=== PATIENT | male | born 1940 | race Caucasian/White ===

== ENCOUNTER 2020-07-24 09:25 | Outpatient (REF) | payer MEDICARE, BC, SELFPAY ==
[2020-07-24 12:38] LABS: Prostate Specific Antigen < 0.05 ng/mL (<0.05-4.0)
== END 2020-07-24 09:26 | disposition home or self-care (01) ==
LOC: HO.HMGCLDS 09:25
PROVIDERS: PCP Internal Medicine; Visit Provider Urology
DX: Z12.5 Encounter for screening for malignant neoplasm of prostate (principal); C61 Malignant neoplasm of prostate
CPT/HCPCS: 36415; 84153

== ENCOUNTER 2021-01-09 07:08 | Outpatient (REF) | payer MEDICARE, BC, SELFPAY ==
[2021-01-09 11:52] LABS: Cholesterol 120 mg/dL; HDL Cholesterol 34 mg/dL; LDL Cholesterol Calculated 71 mg/dl; Triglycerides 78 mg/dL
[2021-01-09 12:18] LABS: Prostate Specific Antigen < 0.05 ng/mL (<0.05-4.0)
== END 2021-01-09 07:09 | disposition home or self-care (01) ==
LOC: HO.HMGCLDS 07:08
PROVIDERS: PCP Internal Medicine; Visit Provider Urology
DX: E11.9 Type 2 diabetes mellitus without complications (principal); Z12.5 Encounter for screening for malignant neoplasm of prostate; C61 Malignant neoplasm of prostate
CPT/HCPCS: 36415; 80061; 84153

== ENCOUNTER 2021-01-11 13:48 | Emergency (ER) | payer MEDICARE, BC, SELFPAY ==
[2021-01-11 14:57] VITALS: BP 197/97; PULSE 48; RESP 16; TEMP 35.7; O2SAT 99; BMI 28.8
[2021-01-11 17:36] LABS: MANUAL DIFF FLAG NO
[2021-01-11 17:38] LABS: Basophils Absolute Auto 0.1 X10*3/uL (0.0-0.2); Eosinophils Absolute Auto 0.2 X10*3/uL (0.0-0.4); Eosinophils Percent Auto 2.4 % (0-4); Hematocrit 40.3 % (42-52); Hemoglobin 14.2 g/dl (14.0-18.0); Imm Gran Abs Auto 0.02 X10*3/uL (0.00-0.03); Imm Gran Pct Auto 0.3 % (0.0-0.4); Lymphocytes Absolute Auto 1.3 X10*3/uL (1.2-4.9); Lymphocytes Percent Auto 18.8 % (20-40); Mean Corpuscular HGB Conc 35.2 g/dl (31.0-36.0); Mean Corpuscular Hemoglobin 30.9 pg (27.0-33.0); Mean Corpuscular Volume 87.6 fL (80-98); Mean Platelet Volume 11.2 fL (9.4-12.4); Monocytes Absolute Auto 0.5 X10*3/uL (0.1-1.2); Monocytes Percent Auto 7.8 % (2-11); Neutrophils Absolute Auto 4.7 X10*3/uL (2.0-8.3); Neutrophils Percent Auto 69.7 % (45-73); Platelet Count 160 X10*3/uL (160-400); Red Cell Distribution Width 12.6 % (11.0-16.0); White Blood Count 6.7 X10*3/uL (4.8-10.8)
[2021-01-11 17:39] LABS: Glucose Urine UA NEG (NEG); Leukocyte Esterase Urine NEG (NEG); Nitrite Urine NEG (NEG); Specific Gravity - Urine <= 1.005 (1.005-1.025); Urine Blood TRACE (NEG); Urine Ketones NEG (NEG); Urine Protein NEG (NEG-TRACE)
[2021-01-11 17:41] LABS: Appearance Urine CLEAR; Color Urine STRAW
--- NOTE | 2021-01-11 17:42 | ED_ITS ---
HPI - Male Genitourinary General Chief complaint: Urogenital-Male Stated complaint: blood in urine Source: patient and family Mode of arrival: ambulatory Limitations: no limitations History of Present Illness HPI Narrative: 80-year-old male with prior history of prostate cancer, hematuria, followed by Dr. Wells presents with hematuria and large bright red blood clots in his urine since yesterday. When he noted blood in his urine he started drinking more fluids and was able to pass large clots without difficulty . He does not feel like he has any urinary retention, and does not report any fevers or chills. He denies abdominal pain and bloating, and states that since his weight in the waiting room that his hematuria has resolved. MD Complaint: other (Hematuria) Onset (ago): day(s) (To) Duration: constant Severity: mild Exacerbating factors: urination Associated symptoms: Reports blood in urine Related Data Home Medications Medication Instructions Recorded Confirmed esomeprazole magnesium 40 mg 40 mg PO DAILY 04/11/20 capsule,delayed release (Nexium) bicalutamide 50 mg tablet 50 mg PO DAILY 08/17/20 blood pressure test kit-large #1 ea 08/17/20 metoprolol tartrate 50 mg tablet 50 mg PO BID 08/17/20 rosuvastatin 40 mg tablet 40 mg PO DAILY 08/17/20 Previous Rx's Medication Instructions Recorded bicalutamide 50 mg tablet 50 mg PO DAILY 90 Days #90 tab 11/06/20 Allergies Allergy/AdvReac Type Severity Reaction Status Date / Time Aspirin Allergy Unknown Sensitivity Uncoded 01/11/21 15:06 /bleeds Review of Systems Review of Systems: Constitutional: No Fever, No Chills ENT/Mouth: No Ear Pain, No Hoarseness, No sore throat Eyes: No Eye Pain, No Swelling, No Redness, No Foreign Body Cardiovascular: No Chest Pain, No SOB Respiratory: No Cough, No Dyspnea Gastrointestinal: No Nausea, No Vomiting, No Diarrhea, No abdominal Pain Genitourinary: No Dysuria, positive Hematuria Musculoskeletal: No joint pain, No Myalgias, No Joint Swelling Skin: No Skin lacerations, No rash Neuro: No Weakness, No Numbness, No Paresthesias, No Loss of Consciousness, No Dizziness, No Headache Psych: No Anxiety/Panic, No Depression Heme/Lymph: no easy bruising, no Lymphadenopathy Endocrine: No Polyuria, No Polydipsia Yes all other systems are reviewed and are negative [facility] Past Medical History Attestation statement: The following information was validated with the patient. Source: old records reviewed Surgical History H/O rectal polypectomy History of coronary artery stent placement History of prostatectomy S/P CABG x 1 Family History Family History Father CAD (coronary artery disease) Myocardial infarction Mother Diverticulitis Social History Social History Alcohol intake: current Alcohol intake frequency: a few times a week Advance Directives: No Advance Directives Information Provided: No Physical Exam Vital Signs: Vital Signs: Last Vital Signs Temp 96.2 F L 01/11/21 14:57 Pulse 48 L 01/11/21 14:57 Resp 16 01/11/21 14:57 BP 197/97 H 01/11/21 14:57 Pulse Ox 99 01/11/21 14:57 Body Mass Index 28.8 Appearance: Alert. Oriented X3. No acute distress. Eyes: Pupils equal, round and reactive to light. ENT: Pharynx normal. Moist mucous membranes. Neck: Normal inspection. Neck supple. CVS: Normal heart rate and rhythm. Pulses normal. Respiratory: No respiratory distress. Breath sounds normal. Abdomen: Soft and nontender. No suprapubic tenderness, bladder not palpable. Skin: Skin warm and dry. Normal skin color. Normal skin turgor. Extremities: No lower extremity edema. Moves all extremities against resistance. Gait well balanced well coordinated. Neuro: No motor deficit. No sensory deficit. Cranial nerves 2-12 intact. Course Course Course Narrative: 80-year-old male presents with resolved hematuria. Labs drawn while he was waiting in the emergency department waiting room. Lab values are within normal limits, no indication of anemia H&H is 14.3/40.3, urinalysis is negative for nitrites or leukocyte esterase, trace amounts of red blood cells. Blood is not visible in his urine at this time. Patient does understand that if symptoms persist or if he has any urinary retention that he should return to the emergency department immediately. He does have an appointment with urology this week. Will have patient discharged home with no further care. Patient and patient's family verbalized understanding of and agrees to plan of care. MDM - Male Genitourinary Differential Diagnosis Differential diagnosis: Likely urinary tract infection and acute retention of urine Medical Records Attestation: I reviewed the patient's medical records. Lab Data Attestation: I reviewed the patient's lab results. Result diagrams: 01/11/21 17:32 01/11/21 17:32 Labs: Lab Results 01/11/21 01/11/21 01/11/21 Range/Units 17:32 17:32 17:32 WBC 6.7 (4.8-10.8) X10*3/uL RBC 4.60 (4.60-5.80) X10*6/uL Hgb 14.2 (14.0-18.0) g/dl Hct 40.3 L (42-52) % MCV 87.6 (80-98) fL MCH 30.9 (27.0-33.0) pg MCHC 35.2 (31.0-36.0) g/dl RDW 12.6 (11.0-16.0) % Plt Count 160 (160-400) X10*3/uL MPV 11.2 (9.4-12.4) fL Immature Gran % (Auto) 0.3 (0.0-0.4) % Neut % (Auto) 69.7 (45-73) % Lymph % (Auto) 18.8 L (20-40) % Hoke % (Auto) 7.8 (2-11) % Eos % (Auto) 2.4 (0-4) % Baso % (Auto) 1.0 (0-2) % Lymph # (Auto) 1.3 (1.2-4.9) X10*3/uL [place] # (Auto) 0.5 (0.1-1.2) X10*3/uL Eos # (Auto) 0.2 (0.0-0.4) X10*3/uL Baso # (Auto) 0.1 (0.0-0.2) X10*3/uL Abs Immat Gran (auto) 0.02 (0.00-0.03) X10*3/uL Absolute Neuts (auto) 4.7 (2.0-8.3) X10*3/uL Absolute Nucleated RBC 0.000 (0.0-0.012) X10*3/uL Nucleated RBC % (auto) 0.0 (0.0-0.2) /100WBC Sodium 136 (135-145) mmol/L Potassium 4.8 (3.3-5.1) mmol/L Chloride 102 (96-108) mmol/L Carbon Dioxide 25 (22-29) mmol/L Anion Gap 14 (12-20) BUN 8 L (9-16) mg/dL Creatinine 0.83 (0.5-1.4) mg/dL Estim Creat Clear Calc 76.8 Estimated GFR > 60 Random Glucose 97 (60-115) mg/dL Calcium 9.9 (8.4-10.2) mg/dL Urine Color STRAW Urine Appearance CLEAR Urine pH 6.0 (5.0-8.0) Ur Specific [place] <= 1.005 (1.005-1.025) Urine Protein NEG (NEG-TRACE) MG/DL Urine Glucose (UA) NEG (NEG) MG/DL Urine Ketones NEG (NEG) MG/DL Urine Blood TRACE (NEG) Urine Nitrite NEG (NEG) Ur Leukocyte Esterase NEG (NEG) Urine RBC 0-2 (0) /HPF Urine WBC 0 (0-4) /HPF Ur Squamous Epith Cells TRACE /LPF Urine Bacteria NONE /LPF Discharge Plan Discharge Clinical Impression: Gross hematuria Patient Disposition: Home, Self-Care Instructions: Hematuria (ED) Additional Instructions: You were evaluated for hematuria with blood clots. Your urinalysis shows a trace amount of blood, urinalysis is negative for nitrates and leukocyte esterase. You do not have urinary tract infection at this time. Your hemoglobin hematocrit are 14.2/40.3, you do not have anemia at this time. Please continue to follow-up with Dr. Wells as scheduled on . If your hematuria or blood clots return or if you have urinary retention please come back to the emergency department for Romero catheterization. Thank you for your time and patience during your long wait time as well as choosing this emergency department for evaluation. Please [facility] with [facility] as needed. Return to the emergency department for any new, concerning, or worsening symptoms. Prescriptions: No Action esomeprazole magnesium [Nexium] 40 mg capsule,delayed release(DR/EC) 40 mg PO DAILY RF: 0 bicalutamide 50 mg tablet 50 mg PO DAILY 90 Days Qty: 90 RF: 1 Interventions: ED Discharge Assessment Last Done: 01/11/21 18:32 Discharge Date/Time: 01/11/21 18:37
[2021-01-11 17:51] LABS: RBC Urine 0-2 /HPF (0); Squamous Epithelial Cell Urine TRACE /LPF; WBC Urine 0 /HPF (0-4)
[2021-01-11 17:59] LABS: Anion Gap 14 (12-20); Blood Urea Nitrogen 8 mg/dL (9-16); Calcium 9.9 mg/dL (8.4-10.2); Carbon Dioxide 25 mmol/L (22-29); Chloride 102 mmol/L (96-108); Creatinine Clr Calc Pharmacy 76.8; Estimated Glomerular Filt Rate > 60; Glucose Random 97 mg/dL (60-115); Potassium 4.8 mmol/L (3.3-5.1); Sodium 136 mmol/L (135-145)
== END 2021-01-11 18:37 | disposition home or self-care (01) ==
PROVIDERS: Emergency Provider Emergency Medicine; PCP Internal Medicine
DX: R31.0 Gross hematuria (principal); C61 Malignant neoplasm of prostate
CPT/HCPCS: 36415; 80048; 81001; 85025; 99283

== ENCOUNTER → 2021-01-17 08:54 | Outpatient (BNVA) | payer MEDICARE, BC, SELFPAY | PROVIDERS: PCP Internal Medicine; Visit Provider Urology | DX: C61 Malignant neoplasm of prostate (principal); N30.40 Irradiation cystitis without hematuria | CPT/HCPCS: 99212 ==

== ENCOUNTER → 2021-03-06 09:25 | Outpatient (BNVA) | payer MEDICARE, BC, SELFPAY | PROVIDERS: PCP Internal Medicine; Visit Provider Urology | DX: N30.40 Irradiation cystitis without hematuria (principal) | CPT/HCPCS: 51700; 51798 ==

== ENCOUNTER 2021-04-13 07:10 | Outpatient (REF) | payer MEDICARE, BC, SELFPAY ==
[2021-04-13 12:17] LABS: Prostate Specific Antigen < 0.05 ng/mL (<0.05-4.0)
[2021-04-18 01:57] LABS: Testosterone, Total 79 ng/dL (250-1100)
== END 2021-04-13 07:11 | disposition home or self-care (01) ==
LOC: HO.HMGCLDS 07:10
PROVIDERS: PCP Internal Medicine; Visit Provider Urology
DX: Z12.5 Encounter for screening for malignant neoplasm of prostate (principal); C61 Malignant neoplasm of prostate
CPT/HCPCS: 36415; 84153; 84403

== ENCOUNTER 2021-04-17 07:21 | Outpatient (REF) | payer MEDICARE, BC, SELFPAY ==
[2021-04-17 11:30] LABS: MANUAL DIFF FLAG NO
[2021-04-17 11:36] LABS: Basophils Absolute Auto 0.1 X10*3/uL (0.0-0.2); Basophils Percent Auto 1.6 % (0-2); Eosinophils Absolute Auto 0.3 X10*3/uL (0.0-0.4); Eosinophils Percent Auto 5.2 % (0-4); Hematocrit 40.1 % (42.0-52.0); Hemoglobin 13.6 g/dl (14.0-18.0); Imm Gran Abs Auto 0.01 X10*3/uL (0.00-0.03); Imm Gran Pct Auto 0.2 % (0.0-0.4); Lymphocytes Absolute Auto 1.5 X10*3/uL (1.2-4.9); Lymphocytes Percent Auto 23.8 % (20-40); Mean Corpuscular HGB Conc 33.9 g/dl (31.0-36.0); Mean Corpuscular Hemoglobin 30.2 pg (27.0-33.0); Mean Corpuscular Volume 88.9 fL (80.0-98.0); Mean Platelet Volume 11.7 fL (9.4-12.4); Monocytes Absolute Auto 0.6 X10*3/uL (0.1-1.2); Monocytes Percent Auto 9.3 % (2-11); Neutrophils Absolute Auto 3.7 x10*3/uL (2.0-8.3); Neutrophils Percent Auto 59.9 % (45-73); Platelet Count 197 X10*3/uL (160-400); Red Blood Count 4.51 X10*6/uL (4.60-5.80); White Blood Count 6.1 X10*3/uL (4.8-10.8)
[2021-04-17 12:23] LABS: Alanine Aminotransferase 15 U/L (0-40); Albumin Level 4.1 g/dL (3.5-5.0); Alkaline Phosphatase 67 U/L (39-117); Anion Gap 12 (12-20); Aspartate Amino Transferase 20 U/L (5-37); Bilirubin Total 0.4 mg/dL (0.0-1.0); Blood Urea Nitrogen 16 mg/dL (9-16); Calcium 9.3 mg/dL (8.4-10.2); Carbon Dioxide 25 mmol/L (22-29); Chloride 102 mmol/L (96-108); Cholesterol 125 mg/dL; Estimated Glomerular Filt Rate > 60; Glucose Fasting 96 mg/dL (60-99); HDL Cholesterol 35 mg/dL; LDL Cholesterol Calculated 68 mg/dl; Potassium 4.1 mmol/L (3.3-5.1); Sodium 135 mmol/L (135-145); Total Protein 6.8 g/dL (6.5-8.0); Triglycerides 114 mg/dL
== END 2021-04-17 07:22 | disposition home or self-care (01) ==
LOC: HO.HMGCLDS 07:21
PROVIDERS: PCP Internal Medicine; Visit Provider Internal Medicine
DX: Z00.00 Encounter for general adult medical examination without abnormal findings (principal); C61 Malignant neoplasm of prostate; N30.40 Irradiation cystitis without hematuria; N39.3 Stress incontinence (female) (male)
CPT/HCPCS: 36415; 51798; 80053; 80061; 81002; 85025; 99212

== ENCOUNTER 2021-09-11 08:20 | Outpatient (REF) | payer MEDICARE, BC, SELFPAY ==
--- NOTE | 2021-09-11 10:21 | MHC.AU.AHA ---
Adult Audiological Evaluation Date of Visit: 09/11/21 Reason for Appointment: Mr. Vasquez was seen for a hearing evaluation due to complaints of possibly decreased hearing overall. Mr. Vasquez has a known bilateral sensorineural hearing loss and uses hearing aids binaurally. Mr. Vasquez reports reduced hearing bilaterally and increased difficulty understanding speech in noise. He also reports his left hearing device seems weaker recently. He denies any significant changes to his overall health and medications. He denies any pain, drainage, dizziness, and tinnitus at today's appointment. Previous Hearing Test Results: [facility] [place]-12/06/2019- Mild sloping to borderline severe to profound sensorineural hearing loss bilaterally. Word recognition in the right ear was 80% at 75 dB HL and 84% at 80 dB HL in the left ear. Ear History: History of Ear Wax Buildup: Both Ears Medical History: Medical History: High Blood Pressure Medical History: History of prostate cancer, History of coronary artery stent placement Allergies: Aspirin Medication List: blood pressure test kit, esomeprazole magnesium, metoprolol tartrate, pentoxifylline ER, rosuvastatin, vitamin E Hearing Instrument History- Right Ear: Supervisor Shaving And Splitting: SmashFly Model: AmVac M90-R Serial Number: [id number] Battery Size: Rechargeable Repair Warranty: 03/07/2023 Loss and Damage Warranty: 03/07/2023 Dispensed By: [facility] Date of Fittin12/28/2019 Hearing Instrument History- Left Ear: Supervisor Shaving And Splitting: SmashFly Model: [id number] M90-[id number] Serial Number: [id number] Battery Size: Rechargeable Warranty: 03/07/2023 Loss and Damage Warranty: 03/07/2023 Dispensed By: [facility] Date of Fittin12/28/2019 Otoscopy: Right Ear: Unremarkable Left Ear: Partially occluded with cerumen Tympanometry: Tympanometry performed due to: To assess integrity of the middle ear system Right Ear: Could Not Obtain Seal Left Ear: Could Not Obtain Seal Hearing Evaluation: Transducer(s) Used: Circumaural Headphones, Bone Conduction Method: Conventional Audiometry Stimuli Used: Pure Tones Right Ear: Description of Hearing: Normal hearing thresholds from 250-500 Hz sloping to a severe sensorineural hearing loss through 8000 Hz. Left Ear: Description of Hearing: Normal hearing threshold at 250 Hz sloping to a profound sensorineural hearing loss through 8000 Hz. Speech Recognition Threshold (SRT): Method Used: Monitored Live Voice Stimuli Used: Spondee Words Right Ear: 30 dB HL Left Ear: 35 dB HL Word Discrimination: Method: Monitored Live Voice, Recorded Lists Word Lists Used: NU-6 Right Ear: 76% at 85 dB HL with monitored live voice. 56% at 85 dB HL with recorded lists. Left Ear: 84% at 85 dB HL with recorded lists. Comparison: Hearing thresholds have remained stable since previous evaluation in 2020. Word recognition in the right ear has decreased when using recorded lists. Interpretation of Results: Stable, mild to profound sensorineural hearing loss bilaterally. Recommendations: Mr. Vasquez should return in one year for an updated hearing evaluation. Hearing aid maintenance was performed at this appointment. Hearing aids were cleaned and microphones were brushed. The staff psychologist on the left device was replaced as the wax guard had become stuck in the staff psychologist. Wax guard was replaced on the right device. Domes were replaced bilaterally. Biologic listening check revealed the devices were in good working order. Devices were connected to programming software and speech in noise was adjusted to address Mr. Vasquez's complaints of difficulties hearing in noise. Mr. Vasquez reported good sound quality. He should return in six months, or sooner, for hearing aid maintenance. Continued use of consistent amplification is recommended. Additionally, recommended patient follow up with their primary care physician for cerumen removal if the cerumen in the left ear begins to impact his hearing abilities. Diagnosis: Primary Diagnosis: H90.3 Bilateral Sensorineural Hearing Loss Services Performed: Comprehensive Audiological Evaluation (CPT 71616) Signature: Student/Clinical Fellow: Yes: Cherelle Harris B.A., [facility] [employer] Manager I have reviewed/agreed with student/fellow documentation: Yes Provider: Samuel Shelby, [facility]
== END 2021-09-11 08:21 | disposition home or self-care (01) ==
LOC: HO.SH 08:20
PROVIDERS: Visit Provider Internal Medicine
DX: Z01.118 Encounter for examination of ears and hearing with other abnormal findings (principal); H90.3 Sensorineural hearing loss, bilateral
CPT/HCPCS: 92557

== ENCOUNTER 2021-10-03 09:09 | Outpatient (REF) | payer MEDICARE, BC, SELFPAY ==
[2021-10-03 12:37] LABS: Prostate Specific Antigen < 0.05 ng/mL (<0.05-4.0)
== END 2021-10-03 09:10 | disposition home or self-care (01) ==
LOC: HO.HMGCLDS 09:09
PROVIDERS: PCP Internal Medicine; Visit Provider Urology
DX: Z12.5 Encounter for screening for malignant neoplasm of prostate (principal); C61 Malignant neoplasm of prostate
CPT/HCPCS: 36415; 84153

== ENCOUNTER → 2021-10-11 09:34 | Outpatient (BNVA) | payer MEDICARE, BC, SELFPAY | PROVIDERS: PCP Internal Medicine; Visit Provider Urology | DX: N39.3 Stress incontinence (female) (male) (principal); N30.40 Irradiation cystitis without hematuria; C61 Malignant neoplasm of prostate | CPT/HCPCS: 99212 ==

== ENCOUNTER 2021-12-15 07:14 | Outpatient (REF) | payer MEDICARE, BC, SELFPAY ==
[2021-12-15 11:01] LABS: MANUAL DIFF FLAG NO
[2021-12-15 11:04] LABS: Basophils Absolute Auto 0.1 X10*3/uL (0.0-0.2); Basophils Percent Auto 2.2 % (0-2); Eosinophils Absolute Auto 0.4 X10*3/uL (0.0-0.4); Eosinophils Percent Auto 7.1 % (0-4); Hematocrit 40.5 % (42.0-52.0); Imm Gran Abs Auto 0.02 X10*3/uL (0.00-0.03); Imm Gran Pct Auto 0.3 % (0.0-0.4); Lymphocytes Absolute Auto 1.7 X10*3/uL (1.2-4.9); Lymphocytes Percent Auto 28.7 % (20-40); Mean Corpuscular HGB Conc 34.6 g/dl (31.0-36.0); Mean Corpuscular Hemoglobin 29.9 pg (27.0-33.0); Mean Corpuscular Volume 86.4 fL (80.0-98.0); Mean Platelet Volume 11.8 fL (9.4-12.4); Monocytes Absolute Auto 0.6 X10*3/uL (0.1-1.2); Monocytes Percent Auto 9.8 % (2-11); Neutrophils Percent Auto 51.9 % (45-73); Platelet Count 176 X10*3/uL (160-400); Red Blood Count 4.69 X10*6/uL (4.60-5.80); Red Cell Distribution Width 13.4 % (11.0-16.0); White Blood Count 5.8 X10*3/uL (4.8-10.8)
[2021-12-15 11:36] LABS: Alanine Aminotransferase 17 U/L (0-40); Albumin Level 4.1 g/dL (3.5-5.0); Alkaline Phosphatase 70 U/L (39-117); Anion Gap 8 (12-20); Aspartate Amino Transferase 21 U/L (5-37); Bilirubin Total 0.4 mg/dL (0.0-1.0); Blood Urea Nitrogen 12 mg/dL (9-16); Calcium 8.9 mg/dL (8.4-10.2); Carbon Dioxide 28 mmol/L (22-29); Chloride 101 mmol/L (96-108); Cholesterol 118 mg/dL; Estimated Glomerular Filt Rate > 60; Glucose Fasting 97 mg/dL (60-99); HDL Cholesterol 34 mg/dL; LDL Cholesterol Calculated 64 mg/dl; Potassium 4.3 mmol/L (3.3-5.1); Sodium 133 mmol/L (135-145); Total Protein 6.9 g/dL (6.5-8.0); Triglycerides 100 mg/dL
== END 2021-12-15 07:15 | disposition home or self-care (01) ==
LOC: HO.HMGCLDS 07:14
PROVIDERS: Absent Provider Urology; PCP Internal Medicine; Visit Provider Internal Medicine
DX: Z00.00 Encounter for general adult medical examination without abnormal findings (principal); Z13.0 Encounter for screening for diseases of the blood and blood-forming organs and certain disorders involving the immune mechanism
CPT/HCPCS: 36415; 80053; 80061; 85025

== ENCOUNTER 2022-04-01 13:41 | Outpatient (REF) | payer MEDICARE, BC, SELFPAY ==
--- NOTE | ~2022-04-01 | XR_ITS ---
EXAMINATION: XR CHEST CLINICAL INFORMATION: Cough. COMPARISON: None TECHNIQUE: 2 views of the chest were obtained. FINDINGS: The lungs are well expanded and clear. The heart size and pulmonary vascularity is normal. There are mediastinal sutures and mediastinal caroline from previous intervention. There is a cardiac valve prosthesis. No pericardial effusion seen. There is no gross bony abnormality. XR/XR chest 2V IMPRESSION: Unremarkable chest examination.
== END 2022-04-01 13:42 | disposition home or self-care (01) ==
LOC: HO.XRAY 13:41
PROVIDERS: PCP Internal Medicine; Visit Provider Internal Medicine
DX: R05.9 Cough, unspecified (principal)
CPT/HCPCS: 71046

== ENCOUNTER 2022-04-19 09:35 | Outpatient (REF) | payer MEDICARE, BC, SELFPAY ==
[2022-04-19 11:58] LABS: Prostate Specific Antigen < 0.10 ng/mL (<0.05-4.0)
== END 2022-04-19 09:36 | disposition home or self-care (01) ==
LOC: HO.HMGCLDS 09:35
PROVIDERS: PCP Internal Medicine; Visit Provider Urology
DX: Z12.5 Encounter for screening for malignant neoplasm of prostate (principal); C61 Malignant neoplasm of prostate
CPT/HCPCS: 36415; 84153

== ENCOUNTER → 2022-04-23 08:26 | Outpatient (BNVA) | payer MEDICARE, BC, SELFPAY | PROVIDERS: PCP Internal Medicine; Visit Provider Urology | DX: C61 Malignant neoplasm of prostate (principal); N30.40 Irradiation cystitis without hematuria | CPT/HCPCS: Q3014 ==

== ENCOUNTER 2022-05-30 07:14 | Outpatient (REF) | payer MEDICARE, BC, SELFPAY ==
[2022-05-30 12:19] LABS: Alanine Aminotransferase 13 U/L (0-40); Alkaline Phosphatase 71 U/L (39-117); Anion Gap 13 (12-20); Aspartate Amino Transferase 23 U/L (5-37); Bilirubin Total 0.5 mg/dL (0.0-1.0); Blood Urea Nitrogen 11 mg/dL (9-16); Calcium 9.1 mg/dL (8.4-10.2); Carbon Dioxide 26 mmol/L (22-29); Chloride 101 mmol/L (96-108); Cholesterol 122 mg/dL; Estimated Glomerular Filt Rate > 60; Glucose Fasting 101 mg/dL (60-99); HDL Cholesterol 38 mg/dL; LDL Cholesterol Calculated 66 mg/dl; Sodium 135 mmol/L (135-145); Thyroid Stimulating Hormone 2.97 uIU/mL (0.32-4.0); Total Protein 6.9 g/dL (6.5-8.0); Triglycerides 91 mg/dL
== END 2022-05-30 07:15 | disposition home or self-care (01) ==
LOC: HO.HMGCLDS 07:14
PROVIDERS: PCP Internal Medicine; Visit Provider Internal Medicine
DX: Z00.00 Encounter for general adult medical examination without abnormal findings (principal); I10 Essential (primary) hypertension; E03.9 Hypothyroidism, unspecified; E78.5 Hyperlipidemia, unspecified
CPT/HCPCS: 36415; 80053; 80061; 84443

== ENCOUNTER 2022-08-29 07:08 | Outpatient (REF) | payer MEDICARE, BC, SELFPAY ==
[2022-08-29 12:15] LABS: Cholesterol 123 mg/dL; HDL Cholesterol 34 mg/dL; LDL Cholesterol Calculated 68 mg/dl; Triglycerides 107 mg/dL
== END 2022-08-29 07:09 | disposition home or self-care (01) ==
LOC: HO.HMGCLDS 07:08
PROVIDERS: PCP Internal Medicine; Visit Provider Internal Medicine
DX: E78.5 Hyperlipidemia, unspecified (principal)
CPT/HCPCS: 36415; 80061

== ENCOUNTER 2022-10-14 09:40 | Outpatient (REF) | payer MEDICARE, BC, SELFPAY ==
[2022-10-14 12:18] LABS: Prostate Specific Antigen < 0.10 ng/mL (<0.05-4.0)
== END 2022-10-14 09:41 | disposition home or self-care (01) ==
LOC: HO.HMGCLDS 09:40
PROVIDERS: PCP Internal Medicine; Visit Provider Urology
DX: Z12.5 Encounter for screening for malignant neoplasm of prostate (principal); C61 Malignant neoplasm of prostate
CPT/HCPCS: 36415; 84153

== ENCOUNTER → 2022-10-17 09:52 | Outpatient (BNVA) | payer MEDICARE, BC, SELFPAY | PROVIDERS: PCP Internal Medicine; Visit Provider Urology | DX: R31.0 Gross hematuria (principal); C61 Malignant neoplasm of prostate; N30.40 Irradiation cystitis without hematuria | CPT/HCPCS: 52000; 99212 ==

== ENCOUNTER 2023-04-04 14:41 | Outpatient (AMB) | payer MEDICARE, BC, SELFPAY ==
[2023-04-04 14:44] VITALS: BP 166/80; PULSE 65; O2SAT 98; BMI 29.2
--- NOTE | 2023-04-04 14:44 | MHC.PC.OV ---
Vital Signs 04/04/23 14:44 Height 5 ft 9 in Weight 198 lb BMI 29.2 BP 166/80 H Blood Pressure Location Lt brachial Position Sitting Pulse 65 Pulse Source Pulse Oximeter Pulse Oximetry (%) 98 Oxygen Delivery Method Room Air Intake Visit Reasons: Medication Follow Up Drafter Commercial: Not Required per policy Accompanied by: Self / Same As Patient Allergies Aspirin Allergy (Unknown, Uncoded 04/04/23 14:44) Sensitivity/bleeds Medication List - Last Reconciled 04/07/23 by Pete Brunner MD aspirin 81 mg PO DAILY blood pressure test kit-large As directed esomeprazole magnesium 40 mg PO DAILY metoprolol tartrate 50 mg PO BID rosuvastatin 40 mg PO DAILY Tobacco use date assessed: 09/02/22 Fall risk assessment: No Falls in past year Last assessed Fall Risk: 04/04/23 Dental Screening Dental Screen Date: 04/04/23 Did you have a dental visit in the last 12 months?: Yes Did you have a dental problem in the last 6 months where you did not have access to dental care?: No Was dental information given to patient?: Patient has dentist HPI Medication Follow Up HPI Details HTN hyperlipidemia and gerd on rx; doing well and compliant [facility] Medical History BMI 28.0-28.9,adult History of sigmoidoscopy Prostate cancer Surgical History History of cystoscopy H/O rectal polypectomy History of coronary artery stent placement S/P CABG x 1 History of prostatectomy Family History Father CAD (coronary artery disease) Myocardial infarction Mother Diverticulitis Social History Housing: House Alcohol intake: current Alcohol intake frequency: a few times a week Patient Tobacco Use Status: Former Tobacco user Tobacco use type: Cigarette e-Cigarette/Vaping Use: Never Used Second Hand Smoke Exposure: No service: No Current occupational status: retired Cognitive needs: No Hearing needs: Yes Vision needs: No Questionnaire PHQ-9 Over the last 2 weeks, how often have you been bothered by any of the following problems? 1. Little interest or pleasure in doing things: not at all 2. Feeling down, depressed, or hopeless: not at all 3. Trouble falling or staying asleep, or sleeping too much: not at all 4. Feeling tired or having little energy: not at all 5. Poor appetite or overeating: not at all 6. Feeling bad about yourself - or that you are a failure or have let yourself or your family down: not at all 7. Trouble concentrating on things, such as reading the newspaper or watching television: not at all 8. Moving or speaking so slowly that other people could have noticed. Or the opposite - being so fidgety or restless that you have been moving around a lot more than usual: not at all 9. Thoughts that you would be better off or of hurting yourself in some way: not at all Total score: 0 Depression Screening Interpretation: Negative Depression Screening Done: Yes Source: Developed by Drs. Faheem Lee, Lexus Stevenson, Marcus Haley and colleagues, with an educational mariposa from [employer]. Thrive Questionnaire Date Thrive assessed: 06/03/22 AUDIT C Alcohol Use Questionnaire (AUDIT-C) 1. How often do you have a drink containing alcohol?: Monthly or less 2. How many drinks containing alcohol do you have on a typical day when you are drinking?: 1 or 2 3. How often do you have six or more drinks on one occasion?: Never Total Score: 1 Score Reviewed/Action Taken: No RIAZ-7 AMB Questionnaire RIAZ-7 Date RIAZ - 7 assessed: 06/03/22 Source: Developed by Drs. Faheem Lee, Lexus Stevenson, Marcus Haley and colleagues, with an educational mariposa from [employer]. Review of Systems Const Denies chills, Denies headache(s) and Denies weight loss ENT Denies headache(s) Card Denies chest pain, Denies syncope, Denies irregular heart rhythm and Denies dyspnea Resp Denies chest congestion, Denies cough and Denies dyspnea GI Denies abdominal pain, Denies change in stool character, Denies nausea and Denies vomiting Musc Denies deformity and Denies joint swelling Neuro Denies syncope and Denies headache(s) Physical exam (Primary Care) Vital Signs: Last Vital Signs Pulse 65 04/04/23 14:44 BP 166/80 H 04/04/23 14:44 Pulse Ox 98 04/04/23 14:44 Oxygen Delivery Method Room Air 04/04/23 14:44 BMI result Body Mass Index 29.2 Tobacco/Smoking Status: Tobacco use Status Tobacco use date assessed 09/02/22 04/04/23 14:49 Patient Tobacco Use Status Former Tobacco user 04/04/23 14:49 Tobacco use type Cigarette 04/04/23 14:49 e-Cigarette/Vaping Use Never Used 04/04/23 14:49 PHQ-9: PHQ-9 Score PHQ-9: Total score 0 04/04/23 14:49 Depression Screening Interpretation: Negative Thrive Assessment: Date of Thrive Assessment Date Thrive assessed 06/03/22 04/04/23 14:49 Const General: cooperative, comfortable, no acute distress and alert Neck Neck: Yes no lymphadenopathy Thyroid: Thyroid normal Resp Effort & Inspection: normal respiratory effort Auscultation: clear to auscultation bilaterally Percussion: percussion normal Cardio Jugular venous distension: no JVD Palpation: normal PMI Rate: regular rate Rhythm: regular rhythm Heart sounds: S1 normal heart sound present and S2 normal heart sound present GI Inspection: Yes normal to inspection Palpation (GI): No hepatosplenomegaly present Skin General skin exam: no rashes or lesions noted Extrem General: Yes no clubbing, cyanosis or edema Assessment and Plan Assessment & Plan (1) Hypertension: Code(s): I10 - Essential (primary) hypertension Plan: stable; same rx (2) Hyperlipidemia: Code(s): E78.5 - Hyperlipidemia, unspecified Plan: stable; same rx (3) Chronic GERD: Code(s): K21.9 - Gastro-esophageal reflux disease without esophagitis Plan: stable; same rx Orders: Orders Lipid Panel Today E78.5 - Hyperlipidemia, unspecified Comprehensive [place]. Panel Fast Today N28.9 - Disorder of kidney and ureter, unspecified Complete Blood Count Auto Diff Today D64.9 - Anemia, unspecified Coding Level of Care Code Est Pt Level 4 (39717) Diagnoses Hypertension I10 Hyperlipidemia E78.5 Chronic GERD K21.9
== END 2023-04-04 15:03 | disposition home or self-care (01) ==
PROVIDERS: PCP Internal Medicine; Visit Provider Internal Medicine
DX: I10 Essential (primary) hypertension (principal); E78.5 Hyperlipidemia, unspecified; K21.9 Gastro-esophageal reflux disease without esophagitis
CPT/HCPCS: 99214

== ENCOUNTER 2023-04-18 07:09 | Outpatient (REF) | payer MEDICARE, BC, SELFPAY ==
[2023-04-18 11:06] LABS: Prostate Specific Antigen < 0.10 ng/mL (<0.05-4.0)
== END 2023-04-18 07:10 | disposition home or self-care (01) ==
LOC: HO.HMGCLDS 07:09
PROVIDERS: PCP Internal Medicine; Visit Provider Urology
DX: Z12.5 Encounter for screening for malignant neoplasm of prostate (principal); C61 Malignant neoplasm of prostate
CPT/HCPCS: 36415; 84153

== ENCOUNTER 2023-04-23 11:39 | Outpatient (AMB) | payer MEDICARE, BC, SELFPAY ==
--- NOTE | 2023-04-23 11:49 | A.OFFVIS_ITS ---
Intake Intake Visit Reasons: 6m/PSA(set) Intake Note: Patient is present for PSA Results Results: 04/18/23 PSA: <0.10 Urology Med: None Antibiotic Allergy: None Blood Thinner: None Allergies Aspirin Allergy (Unknown, Uncoded 04/04/23 14:44) Sensitivity/bleeds Medication List - Last Reconciled 04/23/23 by Pato Wells MD aspirin 81 mg PO DAILY blood pressure test kit-large As directed esomeprazole magnesium 40 mg PO DAILY metoprolol tartrate 50 mg PO BID rosuvastatin 40 mg PO DAILY HPI HPI Comments History of Present Illness Details Jelani is a very pleasant male. He is a patient of Dr. Hill. 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 - urinary incontinence Urinary incontinence Secondary to cystoscopy performed [facility] for fulguration of radiation cystitis Leakage nonresponsive to Kegel exercises Tolerates penile clamp Remains on aspirin secondary to cardiac valve, stent, quad bypass 6 month follow-up PSA Prostate cancer - radical prostatectomy [facility] Cate 8, biochemical failure with radiation therapy Diagnosed many years ago Treatment at [facility] with radical prostatectomy Biochemical failure with subsequent radiation therapy and hormones PSA 01/13 <0.1, 10/14 < 0.1 T 80, 04/16 <0.1, 10/15 <0.1, 04/17 <0.1 Had been on continuous bicalutamide which was stopped 2020 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 Has experienced hemorrhagic cystitis Treated with hyperbaric oxygen in 2018 - has claustrophobia Recurrent episode 2020 - required emergency fulguration of bladder at [facility] May benefit from combination vitamin-E and pentoxifylline [facility] Medical History BMI 28.0-28.9,adult History of sigmoidoscopy Prostate cancer Surgical History History of cystoscopy H/O rectal polypectomy History of coronary artery stent placement S/P CABG x 1 History of prostatectomy Family History Father CAD (coronary artery disease) Myocardial infarction Mother Diverticulitis Social History Housing: House Alcohol intake: current Alcohol intake frequency: a few times a week Patient Tobacco Use Status: Former Tobacco user Tobacco use type: Cigarette e-Cigarette/Vaping Use: Never Used Second Hand Smoke Exposure: No service: No Current occupational status: retired Cognitive needs: No Hearing needs: Yes Vision needs: No Review of Systems Const Denies chills and Denies fever(s) Card Reports no additional complaints and Denies syncope Resp Denies cough GI Denies abdominal pain and Denies heartburn Reports as per HPI and Denies change in libido Neuro Denies syncope Psych Denies change in libido Endo Denies change in libido Physical Exam Const General: cooperative, healthy appearing, comfortable and no acute distress Orientation/consciousness: patient oriented x3 HEENT Face and sinus: Yes normal facial exam Mouth: moist mucous membranes Neck Neck: Yes normal visual inspection, Yes full ROM and Yes trachea midline Chest Chest palpation & inspection: normal inspection of the chest Resp Effort & Inspection: normal respiratory effort, able to speak in complete sentences and no respiratory distress GI Inspection: Yes normal to inspection Back/Spine/Pelvis Cervical Spine: normal cervical lordosis Thoracic/Lumbar Spine: thoracic and lumbar spine normal to inspection Skin General skin exam: no rashes or lesions noted Neuro General: patient oriented x3, gait normal, tone normal and moves all extremities Extrem General: Yes normal to inspection and Yes capillary refill normal Assessment & Plan Assessment & Plan (1) Prostate cancer: Code(s): C61 - Malignant neoplasm of prostate (2) Radiation cystitis: Code(s): N30.40 - Irradiation cystitis without hematuria (3) Urinary incontinence: Code(s): R32 - Unspecified urinary incontinence Qualifiers: Urinary Incontinence type: stress incontinence Qualified Code(s): N39.3 - Stress incontinence (female) (male) Plan Six month follow-up PSA Orders: Orders Prostate Specific Antigen 6 Months C61 - Malignant neoplasm of prostate Patient Instructions: Imaging studies, laboratory and physical exam results were discussed and reviewed in detail. No major barriers to patient understanding were identified. An opportunity to ask questions regarding the treatment plan was provided. All questions were answered. The patient expressed understanding and agreement with the above treatment plan. The patient is aware they should contact our office by phone for worsening of their current condition or the appearance of new urologic symptoms. Compliance is encouraged with any medications and followup testing that is ordered. It is a privilege to participate in the urologic care of your patient. If you have any questions or concerns regarding treatment for the above conditions, or other urologic issues, please do not hesitate to contact me. The office telephone contact is [phone]. This note is constructed using voice recognition software. While every effort has been made to ensure accuracy child & adolescent psychiatrist errors may have been included. Yours sincerely, Dr Pato Wells MD, [facility] - Urology Providers of Expert, Compassionate Care for the Genitourinary System Coding Level of Care Code Est Pt Level 3 (60563) Diagnoses Prostate cancer C61 Radiation cystitis N30.40 Stress incontinence of urine N39.3 Urinary Incontinence type: stress incontinence
== END 2023-04-23 12:26 | disposition home or self-care (01) ==
PROVIDERS: Visit Provider Urology
DX: C61 Malignant neoplasm of prostate (principal); N30.40 Irradiation cystitis without hematuria; N39.3 Stress incontinence (female) (male)
CPT/HCPCS: 99213

== ENCOUNTER → 2023-04-23 11:39 | Outpatient (BNVA) | payer MEDICARE, BC, SELFPAY | PROVIDERS: Visit Provider Urology | DX: N30.40 Irradiation cystitis without hematuria (principal); N39.3 Stress incontinence (female) (male); C61 Malignant neoplasm of prostate | CPT/HCPCS: 99212 ==

== ENCOUNTER 2023-07-10 07:49 | Outpatient (REF) | payer MEDICARE, BC, SELFPAY ==
[2023-07-10 11:37] LABS: MANUAL DIFF FLAG NO
[2023-07-10 11:52] LABS: Basophils Absolute Auto 0.1 X10*3/uL (0.0-0.2); Basophils Percent Auto 1.7 % (0-2); Eosinophils Absolute Auto 0.3 X10*3/uL (0.0-0.4); Eosinophils Percent Auto 4.6 % (0-4); Hematocrit 42.3 % (42.0-52.0); Hemoglobin 14.6 g/dl (14.0-18.0); Imm Gran Abs Auto 0.01 X10*3/uL (0.00-0.03); Imm Gran Pct Auto 0.1 % (0.0-0.4); Lymphocytes Absolute Auto 1.7 X10*3/uL (1.2-4.9); Lymphocytes Percent Auto 23.1 % (20-40); Mean Corpuscular HGB Conc 34.5 g/dl (31.0-36.0); Mean Corpuscular Hemoglobin 30.2 pg (27.0-33.0); Mean Corpuscular Volume 87.4 fL (80.0-98.0); Mean Platelet Volume 11.5 fL (9.4-12.4); Monocytes Absolute Auto 0.7 X10*3/uL (0.1-1.2); Monocytes Percent Auto 8.9 % (2-11); Neutrophils Absolute Auto 4.6 x10*3/uL (2.0-8.3); Neutrophils Percent Auto 61.6 % (45-73); Platelet Count 172 X10*3/uL (160-400); Red Blood Count 4.84 X10*6/uL (4.60-5.80); White Blood Count 7.4 X10*3/uL (4.8-10.8)
[2023-07-10 12:18] LABS: Alanine Aminotransferase 15 U/L (0-40); Albumin Level 3.9 g/dL (3.5-5.0); Alkaline Phosphatase 74 U/L (39-117); Anion Gap 11 (12-20); Aspartate Amino Transferase 20 U/L (5-37); Bilirubin Total 0.5 mg/dL (0.0-1.0); Blood Urea Nitrogen 11 mg/dL (9-16); Calcium 9.2 mg/dL (8.4-10.2); Carbon Dioxide 27 mmol/L (22-29); Chloride 102 mmol/L (96-108); Cholesterol 123 mg/dL (<200); Estimated Glomerular Filt Rate > 60; Glucose Fasting 93 mg/dL (60-99); HDL Cholesterol 37 mg/dL (>40); LDL Cholesterol Calculated 70 mg/dL (<100); Potassium 5.1 mmol/L (3.3-5.1); Sodium 135 mmol/L (135-145); Total Protein 7.2 g/dL (6.5-8.0); Triglycerides 82 mg/dL (<150)
== END 2023-07-10 07:50 | disposition home or self-care (01) ==
LOC: HO.HMGCLDS 07:49
PROVIDERS: PCP Internal Medicine; Visit Provider Internal Medicine
DX: E78.5 Hyperlipidemia, unspecified (principal); N28.9 Disorder of kidney and ureter, unspecified; D64.9 Anemia, unspecified
CPT/HCPCS: 36415; 80053; 80061; 85025

== ENCOUNTER 2023-07-15 10:41 | Outpatient (AMB) | payer MEDICARE, BC, SELFPAY ==
[2023-07-15 10:50] VITALS: BP 132/84; PULSE 50; O2SAT 98; BMI 29.2
--- NOTE | 2023-07-15 10:50 | MHC.PC.OV ---
Vital Signs 07/15/23 10:50 Height 5 ft 9 in Weight 198 lb BMI 29.2 BP 132/84 Blood Pressure Location Lt brachial Position Sitting Pulse 50 Pulse Source Pulse Oximeter Pulse Oximetry (%) 98 Oxygen Delivery Method Room Air Intake Visit Reasons: 3 month f/u Allergies Aspirin Allergy (Unknown, Uncoded 07/15/23 10:50) Sensitivity/bleeds Medication List - Last Reconciled 07/15/23 by Pete Brunner MD aspirin 81 mg PO DAILY blood pressure test kit-large As directed esomeprazole magnesium 40 mg PO DAILY metoprolol tartrate 50 mg PO BID rosuvastatin 40 mg PO DAILY Tobacco use date assessed: 07/15/23 Fall risk assessment: No Falls in past year Last assessed Fall Risk: 07/15/23 Dental Screening Dental Screen Date: 07/15/23 Did you have a dental visit in the last 12 months?: Yes Did you have a dental problem in the last 6 months where you did not have access to dental care?: No Was dental information given to patient?: Patient has dentist HPI 3 month f/u HPI Details HTN hyperlip and urinary incont s/p prostate cancer; doing well and compliant [facility] Medical History BMI 28.0-28.9,adult History of sigmoidoscopy Prostate cancer Surgical History History of cystoscopy H/O rectal polypectomy History of coronary artery stent placement S/P CABG x 1 History of prostatectomy Family History Father CAD (coronary artery disease) Myocardial infarction Mother Diverticulitis Social History Housing: House Alcohol intake: current Alcohol intake frequency: a few times a week Patient Tobacco Use Status: Former Tobacco user Tobacco use type: Cigarette e-Cigarette/Vaping Use: Never Used Second Hand Smoke Exposure: No service: No Current occupational status: retired Cognitive needs: No Hearing needs: Yes Vision needs: No Questionnaire PHQ-9 Over the last 2 weeks, how often have you been bothered by any of the following problems? 1. Little interest or pleasure in doing things: not at all 2. Feeling down, depressed, or hopeless: not at all 3. Trouble falling or staying asleep, or sleeping too much: not at all 4. Feeling tired or having little energy: not at all 5. Poor appetite or overeating: not at all 6. Feeling bad about yourself - or that you are a failure or have let yourself or your family down: not at all 7. Trouble concentrating on things, such as reading the newspaper or watching television: not at all 8. Moving or speaking so slowly that other people could have noticed. Or the opposite - being so fidgety or restless that you have been moving around a lot more than usual: not at all 9. Thoughts that you would be better off or of hurting yourself in some way: not at all Total score: 0 Depression Screening Interpretation: Negative Depression Screening Done: Yes 86495 - PHQ-9 Billing: Yes Source: Developed by Drs. Faheem Lee, Lexus Stevenson, Marcus Haley and colleagues, with an educational mariposa from [employer]. Thrive Questionnaire Date Thrive assessed: 07/15/23 I am a: Patient What is your living situation today?: I have a steady place to live Within the past 12 months, did the food you bought not last and you didn't have the money to get more?: Never true Within the past 12 months, did you worry whether your food would run out before you got money to buy more?: Never true Do you have trouble paying for medicines?: No Do you have trouble getting transportation to medical appointments?: No Do you have trouble paying your heating and electricity bill?: No Do you have trouble taking care of your child, family member or friend?: No Do you have trouble with day-to-day activities such as bathing, preparing meals, shopping, managing finances, etc.?: No Are you currently unemployed and looking for a job?: No Are you interested in more education?: No Please select the resources that you would like help with: None THRIVE Score: 0 AUDIT C Alcohol Use Questionnaire (AUDIT-C) 1. How often do you have a drink containing alcohol?: Monthly or less 2. How many drinks containing alcohol do you have on a typical day when you are drinking?: 1 or 2 3. How often do you have six or more drinks on one occasion?: Never Total Score: 1 Score Reviewed/Action Taken: No RIAZ-7 AMB Questionnaire RIAZ-7 Date RIAZ - 7 assessed: 07/15/23 Feeling nervous, anxious, or on edge: 0 = Not at all Not being able to stop or control worryin = Not at all Worrying too much about different things: 0 = Not at all Trouble relaxin = Not at all Being so restless that it is hard to sit still: 0 = Not at all Becoming easily annoyed or irritable: 0 = Not at all Feeling afraid as if something awful might happen: 0 = Not at all Total RIAZ-7 score (0-4 normal; 5-9 mild; 10-14 moderate; 15-21 severe): 0 Source: Developed by Drs. Faheem Lee, Lexus Stevenson, Marcus Haley and colleagues, with an educational mariposa from [employer]. RIAZ-7 Assessment Billing RIAZ-7 Assessment Tool: RIAZ-7 Assessment 48172 Review of Systems Const Denies chills, Denies headache(s) and Denies weight loss ENT Denies headache(s) Card Denies chest pain, Denies syncope, Denies irregular heart rhythm and Denies dyspnea Resp Denies chest congestion, Denies cough and Denies dyspnea GI Denies abdominal pain, Denies change in stool character, Denies nausea and Denies vomiting Musc Denies deformity and Denies joint swelling Neuro Denies syncope and Denies headache(s) Physical exam (Primary Care) Vital Signs: Last Vital Signs Pulse 50 07/15/23 10:50 BP 132/84 07/15/23 10:50 Pulse Ox 98 07/15/23 10:50 Oxygen Delivery Method Room Air 07/15/23 10:50 BMI result Body Mass Index 29.2 Tobacco/Smoking Status: Tobacco use Status Tobacco use date assessed 07/15/23 07/15/23 10:52 Patient Tobacco Use Status Former Tobacco user 07/15/23 10:52 Tobacco use type Cigarette 07/15/23 10:52 e-Cigarette/Vaping Use Never Used 07/15/23 10:52 PHQ-9: PHQ-9 Score PHQ-9: Total score 0 07/15/23 10:52 Depression Screening Interpretation: Negative Thrive Assessment: Date of Thrive Assessment Date Thrive assessed 07/15/23 07/15/23 10:52 Const General: cooperative, comfortable, no acute distress and alert Neck Neck: Yes no lymphadenopathy Thyroid: Thyroid normal Resp Effort & Inspection: normal respiratory effort Auscultation: clear to auscultation bilaterally Percussion: percussion normal Cardio Jugular venous distension: no JVD Palpation: normal PMI Rate: regular rate Rhythm: regular rhythm Heart sounds: S1 normal heart sound present and S2 normal heart sound present GI Inspection: Yes normal to inspection Palpation (GI): No hepatosplenomegaly present Skin General skin exam: no rashes or lesions noted Extrem General: Yes no clubbing, cyanosis or edema Assessment and Plan Assessment & Plan (1) Urinary incontinence: Code(s): R32 - Unspecified urinary incontinence Qualifiers: Urinary Incontinence type: stress incontinence Qualified Code(s): N39.3 - Stress incontinence (female) (male) Plan: as per urol (2) Hyperlipidemia: Code(s): E78.5 - Hyperlipidemia, unspecified Plan: stable; same rx (3) Hypertension: Code(s): I10 - Essential (primary) hypertension Plan: stable; same rx Orders: Orders Lipid Panel Today E78.5 - Hyperlipidemia, unspecified Coding Level of Care Code Est Pt Level 4 (72588) Diagnoses Stress incontinence of urine N39.3 Urinary Incontinence type: stress incontinence Hyperlipidemia E78.5 Hypertension I10 Additional Codes RIAZ-7 Assessment Billing - RIAZ-7 Assessment Tool: RIAZ-7 Assessment 02932 ([id number])
== END 2023-07-15 11:02 | disposition home or self-care (01) ==
PROVIDERS: PCP Internal Medicine; Visit Provider Internal Medicine
DX: N39.3 Stress incontinence (female) (male) (principal); E78.5 Hyperlipidemia, unspecified; I10 Essential (primary) hypertension
CPT/HCPCS: 99214

== ENCOUNTER 2023-10-08 07:17 | Outpatient (REF) | payer MEDICARE, BC, SELFPAY ==
[2023-10-08 10:50] LABS: Cholesterol 114 mg/dL (<200); HDL Cholesterol 36 mg/dL (>40); LDL Cholesterol Calculated 58 mg/dL (<100); Triglycerides 101 mg/dL (<150)
[2023-10-08 11:07] LABS: Prostate Specific Antigen < 0.10 ng/mL (<0.05-4.0)
== END 2023-10-08 07:18 | disposition home or self-care (01) ==
LOC: HO.HMGCLDS 07:17
PROVIDERS: PCP Internal Medicine; Referring Provider Urology; Visit Provider Internal Medicine
DX: C61 Malignant neoplasm of prostate (principal); E78.5 Hyperlipidemia, unspecified; Z12.5 Encounter for screening for malignant neoplasm of prostate
CPT/HCPCS: 36415; 80061; 84153

== ENCOUNTER 2023-10-29 09:58 | Outpatient (AMB) | payer MEDICARE, BC, SELFPAY ==
--- NOTE | 2023-10-29 09:58 | A.OFFVIS_ITS ---
Intake Visit Reasons: 6M PSA(set) Intake Note: Patient is present for PSA Results VIA PHONE: Results: 10/08/23 PSA: <0.10 ng/mL Urology Med: None Antibiotic Allergy: None Blood Thinner: None Lens Mold Setter Required: No Accompanied by: Self / Same As Patient Allergies Aspirin Allergy (Unknown, Uncoded 10/29/23 09:59) Sensitivity/bleeds HPI Comments Details: Jelani is a very pleasant male. He is a patient of Dr. Hill. 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 - urinary incontinence Telemedicine Evaluation 15 min Consultation [employer] Randal Video PSA 10/16 <0.1 Penile clamp tolerated Urinary incontinence Secondary to cystoscopy performed [facility] for fulguration of radiation cystitis Leakage nonresponsive to Kegel exercises Tolerates penile clamp Remains on aspirin secondary to cardiac valve, stent, quad bypass 6 month follow-up PSA Prostate cancer - radical prostatectomy [facility] [place] 8, biochemical failure with radiation therapy Diagnosed many years ago Treatment at [facility] with radical prostatectomy Biochemical failure with subsequent radiation therapy and hormones PSA 01/13 <0.1, 10/14 < 0.1 T 80, 04/16 <0.1, 10/15 <0.1, 04/17 <0.1 Had been on continuous bicalutamide which was stopped 2020 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 Has experienced hemorrhagic cystitis Treated with hyperbaric oxygen in 2018 - has claustrophobia Recurrent episode 2020 - required emergency fulguration of bladder at [facility] May benefit from combination vitamin-E and pentoxifylline [facility] Medical History BMI 28.0-28.9,adult History of sigmoidoscopy Prostate cancer Surgical History History of cystoscopy H/O rectal polypectomy History of coronary artery stent placement S/P CABG x 1 History of prostatectomy Family History Father CAD (coronary artery disease) Myocardial infarction Mother Diverticulitis Social History Housing: House Alcohol intake: current Alcohol intake frequency: a few times a week Patient Tobacco Use Status: Former Tobacco user Tobacco use type: Cigarette e-Cigarette/Vaping Use: Never Used Second Hand Smoke Exposure: No service: No Current occupational status: retired Cognitive needs: No Hearing needs: Yes Vision needs: No Review of Systems Const All systems reviewed & are unremarkable except as noted in HPI and below Reports no additional complaints Resp Reports no additional complaints GI Reports no additional complaints Reports as per HPI Musc Reports no additional complaints Physical Exam Telemedicine evaluation Appropriate responses Regular breathing rate and rhythm HEENT Head: Yes normal to inspection Ears: hearing grossly normal bilaterally Eyes General: appearance normal, both eyes and all related structures Neck Neck: Yes normal visual inspection Chest Chest palpation & inspection: normal inspection of the chest Resp Effort & Inspection: normal respiratory effort and able to speak in complete sentences Telehealth Telehealth Telehealth Platform: Koko Location of provider rendering services: practice address Location of patient: address on file Patient Identification confirmed using: Name, : Yes Telehealth method: video Patient verbally consented to treatment: Yes Patient verbally consented to billing insurance company: Yes Patient informed of any privacy concerns related to visit: Yes Minutes spent on Phone/Video with Pt.: 15 Assessment & Plan Assessment & Plan (1) Urinary incontinence: Code(s): R32 - Unspecified urinary incontinence Category: Medical Qualifiers: Urinary Incontinence type: stress incontinence Qualified Code(s): N39.3 - Stress incontinence (female) (male) (2) Prostate cancer: Code(s): C61 - Malignant neoplasm of prostate Category: Medical Plan Six-month follow-up office PSA Orders: Orders Prostate Specific Antigen 6 Months C61 - Malignant neoplasm of prostate Patient Instructions: Imaging studies, laboratory and physical exam results were discussed and reviewed in detail. No major barriers to patient understanding were identified. An opportunity to ask questions regarding the treatment plan was provided. All questions were answered. The patient expressed understanding and agreement with the above treatment plan. The patient is aware they should contact our office by phone for worsening of their current condition or the appearance of new urologic symptoms. Compliance is encouraged with any medications and followup testing that is ordered. It is a privilege to participate in the urologic care of your patient. If you have any questions or concerns regarding treatment for the above conditions, or other urologic issues, please do not hesitate to contact me. The office telephone contact is [phone]. This note is constructed using voice recognition software. While every effort has been made to ensure accuracy blurb writer errors may have been included. Yours sincerely, Dr Pato Wells MD, [facility] - Urology Providers of Expert, Compassionate Care for the Genitourinary System Coding Level of Care Code Tele Est Pt Level 3 (58987) Diagnoses Stress incontinence of urine N39.3 Urinary Incontinence type: stress incontinence Prostate cancer C61
== END 2023-10-29 11:05 | disposition home or self-care (01) ==
LOC: HO.HUSH 09:58
PROVIDERS: PCP Internal Medicine; Visit Provider Urology
DX: N39.3 Stress incontinence (female) (male) (principal); C61 Malignant neoplasm of prostate
CPT/HCPCS: 99213

== ENCOUNTER → 2023-10-29 09:58 | Outpatient (BNVA) | payer MEDICARE, BC, SELFPAY | PROVIDERS: PCP Internal Medicine; Visit Provider Urology ==

== ENCOUNTER 2023-11-05 09:22 | Outpatient (AMB) | payer MEDICARE, BC, SELFPAY ==
--- NOTE | 2023-11-05 09:23 | A.OFFPC_ITS ---
Vital Signs 11/05/23 09:24 Height 5 ft 9 in Weight 195 lb BMI 28.8 BP 132/68 Blood Pressure Location Lt brachial Position Sitting Pulse 56 Pulse Source Pulse Oximeter Pulse Oximetry (%) 96 Oxygen Delivery Method Room Air Intake Visit Reasons: 3mth f/u Pipe Fitter Welding Required: No Allergies Aspirin Allergy (Unknown, Uncoded 11/05/23 09:24) Sensitivity/bleeds Medication List - Last Reconciled 11/05/23 by Pete Brunner MD aspirin 81 mg PO DAILY blood pressure test kit-large As directed esomeprazole magnesium 40 mg PO DAILY metoprolol tartrate 50 mg PO BID rosuvastatin 40 mg PO DAILY Tobacco use date assessed: 11/05/23 Fall risk assessment: No Falls in past year Last assessed Fall Risk: 11/05/23 Dental Screening Dental Screen Date: 07/15/23 HPI 3mth f/u HPI Details productive cough for 10 days PFSH Medical History BMI 28.0-28.9,adult History of sigmoidoscopy Prostate cancer Surgical History History of cystoscopy H/O rectal polypectomy History of coronary artery stent placement S/P CABG x 1 History of prostatectomy Family History Father CAD (coronary artery disease) Myocardial infarction Mother Diverticulitis Social History Housing: House Alcohol intake: current Alcohol intake frequency: a few times a week Patient Tobacco Use Status: Former Tobacco user Tobacco use type: Cigarette e-Cigarette/Vaping Use: Never Used Second Hand Smoke Exposure: No service: No Current occupational status: retired Cognitive needs: No Hearing needs: Yes Vision needs: No Questionnaire Thrive Questionnaire Date Thrive assessed: 07/15/23 AUDIT C Alcohol Use Questionnaire (AUDIT-C) 1. How often do you have a drink containing alcohol?: Monthly or less 2. How many drinks containing alcohol do you have on a typical day when you are drinking?: 1 or 2 3. How often do you have six or more drinks on one occasion?: Never Total Score: 1 Score Reviewed/Action Taken: No RIAZ-7 AMB Questionnaire RIAZ-7 Date RIAZ - 7 assessed: 07/15/23 Source: Developed by Drs. Faheem Lee, Lexus Stevenson, Marcus Haley and colleagues, with an educational mariposa from [employer]. Review of Systems Const Denies chills, Denies headache(s) and Denies weight loss ENT Denies headache(s) Card Denies chest pain, Denies syncope, Denies irregular heart rhythm and Denies dyspnea Resp Denies dyspnea GI Denies abdominal pain, Denies change in stool character, Denies nausea and Denies vomiting Musc Denies deformity and Denies joint swelling Neuro Denies syncope and Denies headache(s) Physical exam (Primary Care) Vital Signs: Last Vital Signs Pulse 56 11/05/23 09:24 BP 132/68 11/05/23 09:24 Pulse Ox 96 11/05/23 09:24 Oxygen Delivery Method Room Air 11/05/23 09:24 BMI result Body Mass Index 28.8 Tobacco/Smoking Status: Tobacco use Status Tobacco use date assessed 11/05/23 11/05/23 09:28 Patient Tobacco Use Status Former Tobacco user 11/05/23 09:28 Tobacco use type Cigarette 11/05/23 09:28 e-Cigarette/Vaping Use Never Used 11/05/23 09:28 Thrive Assessment: Date of Thrive Assessment Date Thrive assessed 07/15/23 11/05/23 09:28 Const General: cooperative, comfortable, no acute distress and alert Neck Neck: Yes no lymphadenopathy Thyroid: Thyroid normal Resp Effort & Inspection: normal respiratory effort Auscultation: clear to auscultation bilaterally Percussion: percussion normal Cardio Jugular venous distension: no JVD Palpation: normal PMI Rate: regular rate Rhythm: regular rhythm Heart sounds: S1 normal heart sound present and S2 normal heart sound present GI Inspection: Yes normal to inspection Palpation (GI): No hepatosplenomegaly present Skin General skin exam: no rashes or lesions noted Extrem General: Yes no clubbing, cyanosis or edema Assessment and Plan Assessment & Plan (1) Bronchitis: Code(s): J40 - Bronchitis, not specified as acute or chronic Plan: rx sent Medications: New azithromycin take 500 mg today (day 1), then 250 mg for 4 days (days 2-5) PO 6 tabs 0RF [id number] 6.25-5-10 mg/5 mL 5 mL PO Q4-6H PRN 473 mL 0RF flu symptoms Coding Level of Care Code Est Pt Level 3 (19042) Diagnoses Bronchitis J40
[2023-11-05 09:24] VITALS: BP 132/68; PULSE 56; O2SAT 96; BMI 28.8
== END 2023-11-05 09:43 | disposition home or self-care (01) ==
PROVIDERS: PCP Internal Medicine; Visit Provider Internal Medicine
DX: J40 Bronchitis, not specified as acute or chronic (principal)
CPT/HCPCS: 99213

== ENCOUNTER 2023-12-25 09:11 | Outpatient (REF) | payer SELFPAY | END 2023-12-25 09:12 | disposition home or self-care (01) | LOC: HO.HAP 09:11 | PROVIDERS: Visit Provider Internal Medicine | DX: Z46.1 Encounter for fitting and adjustment of hearing aid (principal) | CPT/HCPCS: 92593 ==

== ENCOUNTER 2024-02-17 09:18 | Outpatient (AMB) | payer MEDICARE, BC, SELFPAY ==
[2024-02-17 09:19] VITALS: BP 138/72; PULSE 46; O2SAT 99; BMI 28.1
--- NOTE | 2024-02-17 09:19 | A.OFFPC_ITS ---
Vital Signs 02/17/24 09:19 Height 5 ft 9 in Weight 190 lb BMI 28.1 BP 138/72 Blood Pressure Location Lt brachial Position Sitting Pulse 46 L Pulse Source Pulse Oximeter Pulse Oximetry (%) 99 Oxygen Delivery Method Room Air Intake Visit Reasons: 3 Month F/U - see comments Medical Billing Coordinator Required: No Accompanied by: Self / Same As Patient Allergies Aspirin Allergy (Unknown, Uncoded 02/17/24 09:19) Sensitivity/bleeds Medication List - Last Reconciled 02/17/24 by Pete Brunner MD aspirin 81 mg PO DAILY blood pressure test kit-large As directed esomeprazole magnesium 40 mg PO DAILY metoprolol tartrate 50 mg PO BID rosuvastatin 40 mg PO DAILY Tobacco use date assessed: 11/05/23 Fall risk assessment: No Falls in past year Last assessed Fall Risk: 02/17/24 Dental Screening Dental Screen Date: 07/15/23 HPI 3 Month F/U - see comments HPI Details hyperlipidemia on rx; doing well; compliant [facility] Medical History BMI 28.0-28.9,adult History of sigmoidoscopy Prostate cancer Surgical History History of cystoscopy H/O rectal polypectomy History of coronary artery stent placement S/P CABG x 1 History of prostatectomy Family History Father CAD (coronary artery disease) Myocardial infarction Mother Diverticulitis Social History Housing: House Alcohol intake: current Alcohol intake frequency: a few times a week Patient Tobacco Use Status: Former Tobacco user Tobacco use type: Cigarette e-Cigarette/Vaping Use: Never Used Second Hand Smoke Exposure: No service: No Current occupational status: retired Cognitive needs: No Hearing needs: Yes Vision needs: No Questionnaire PHQ-9 Over the last 2 weeks, how often have you been bothered by any of the following problems? 1. Little interest or pleasure in doing things: not at all 2. Feeling down, depressed, or hopeless: not at all 3. Trouble falling or staying asleep, or sleeping too much: not at all 4. Feeling tired or having little energy: not at all 5. Poor appetite or overeating: not at all 6. Feeling bad about yourself - or that you are a failure or have let yourself or your family down: not at all 7. Trouble concentrating on things, such as reading the newspaper or watching television: not at all 8. Moving or speaking so slowly that other people could have noticed. Or the opposite - being so fidgety or restless that you have been moving around a lot more than usual: not at all 9. Thoughts that you would be better off or of hurting yourself in some way: not at all Total score: 0 Depression Screening Interpretation: Negative Depression Screening Done: Yes 86943 - PHQ-9 Billing: Yes Source: Developed by Drs. Faheem Lee, Lexus Stevenson, Marcus Haley and colleagues, with an educational mariposa from [employer]. Thrive Questionnaire Date Thrive assessed: 07/15/23 Are you currently unemployed and looking for a job?: I choose not to answer this question AUDIT C Alcohol Use Questionnaire (AUDIT-C) 2. How many drinks containing alcohol do you have on a typical day when you are drinking?: 1 or 2 3. How often do you have six or more drinks on one occasion?: Never Total Score: 0 RIAZ-7 AMB Questionnaire RIAZ-7 Date RIAZ - 7 assessed: 07/15/23 Source: Developed by Drs. Faheem Lee, Lexus Stevenson, Marcus Haley and colleagues, with an educational mariposa from [employer]. Review of Systems Const Denies chills, Denies headache(s) and Denies weight loss ENT Denies headache(s) Card Denies chest pain, Denies syncope, Denies irregular heart rhythm and Denies dyspnea Resp Denies chest congestion, Denies cough and Denies dyspnea GI Denies abdominal pain, Denies change in stool character, Denies nausea and Denies vomiting Musc Denies deformity and Denies joint swelling Neuro Denies syncope and Denies headache(s) Physical exam (Primary Care) Vital Signs: Last Vital Signs Pulse 46 L 02/17/24 09:19 BP 138/72 02/17/24 09:19 Pulse Ox 99 02/17/24 09:19 Oxygen Delivery Method Room Air 02/17/24 09:19 BMI result Body Mass Index 28.1 Tobacco/Smoking Status: Tobacco use Status Tobacco use date assessed 11/05/23 02/17/24 09:27 Patient Tobacco Use Status Former Tobacco user 02/17/24 09:27 Tobacco use type Cigarette 02/17/24 09:27 e-Cigarette/Vaping Use Never Used 02/17/24 09:27 PHQ-9: PHQ-9 Score PHQ-9: Total score 0 02/17/24 09:27 Depression Screening Interpretation: Negative Thrive Assessment: Date of Thrive Assessment Date Thrive assessed 07/15/23 02/17/24 09:27 Const General: cooperative, comfortable, no acute distress and alert Neck Neck: Yes no lymphadenopathy Thyroid: Thyroid normal Resp Effort & Inspection: normal respiratory effort Auscultation: clear to auscultation bilaterally Percussion: percussion normal Cardio Jugular venous distension: no JVD Palpation: normal PMI Rate: regular rate Rhythm: regular rhythm Heart sounds: S1 normal heart sound present and S2 normal heart sound present GI Inspection: Yes normal to inspection Palpation (GI): No hepatosplenomegaly present Skin General skin exam: no rashes or lesions noted Extrem General: Yes no clubbing, cyanosis or edema Assessment and Plan Assessment & Plan (1) Hyperlipidemia: Code(s): E78.5 - Hyperlipidemia, unspecified Plan: stabe; same rx Orders: Orders Lipid Panel Today Z13.220 - Encounter for screening for lipoid disorders Coding Level of Care Code Est Pt Level 3 (88705) Diagnoses Hyperlipidemia E78.5
== END 2024-02-17 09:44 | disposition home or self-care (01) ==
PROVIDERS: PCP Internal Medicine; Visit Provider Internal Medicine
DX: E78.5 Hyperlipidemia, unspecified (principal)

== ENCOUNTER → 2024-02-17 09:18 | Outpatient (BNVA) | payer MEDICARE, BC, SELFPAY | PROVIDERS: PCP Internal Medicine; Visit Provider Internal Medicine | DX: E78.5 Hyperlipidemia, unspecified (principal) | CPT/HCPCS: 99212 ==

== ENCOUNTER 2024-04-19 10:38 | Outpatient (REF) | payer MEDICARE, BC, SELFPAY ==
--- NOTE | 2024-04-20 08:16 | MHC.AU.HA3 ---
Hearing Instrument Follow-Up- Binaural Date of Visit: 04/19/24 Right Ear: Yoel Model, Color, Serial Number: [id number] Book Solicitor Repair Warranty: 03/07/2023 Book Solicitor Loss and Damage Warranty: 03/07/2023 [facility] Service Plan: Battery Size: Rechargeable Car Deliverer/Slim Tube: 2xM Earmold/Dome/CShell/SlimTip: Type of Wax Guard: Dispensed By: [facility] Date of Fittin12/28/2019 Left Ear: Yoel, Model, Color, Serial Number: [id number] Book Solicitor Repair Warranty: 03/07/2023 Book Solicitor Loss and Damage Warranty: 03/07/2023 [facility] Service Plan: Battery Size: Rechargeable Car Deliverer/Slim Tube: 2xM Earmold/Dome/CShell/SlimTip: Type of Wax Guard: Dispensed By: [facility] Date of Fittin12/28/2019 Follow-Up Summary: Right aid dropped off does not charge . Found aid to be in standby mode. Taken out of standby mode. Charged to 100% overnight. Cleaned aid, replaced dome and wax guard. Listening check positive. Checked for firmware update, none needed. Recommendations: Recommendations: Hearing instrument follow-up or maintenance as needed. Diagnosis Code(s): Primary Diagnosis: H90.3 Bilateral Sensorineural Hearing Loss Signature: Provider: Shane Darnell, CCC-A
== END 2024-04-19 10:39 | disposition home or self-care (01) ==
LOC: HO.HAP 10:38
PROVIDERS: Visit Provider Internal Medicine
DX: Z13.89 Encounter for screening for other disorder (principal)

== ENCOUNTER 2024-04-20 07:11 | Outpatient (REF) | payer MEDICARE, BC, SELFPAY ==
[2024-04-20 10:23] LABS: Cholesterol 120 mg/dL (<200); HDL Cholesterol 39 mg/dL (>40); LDL Cholesterol Calculated 66 mg/dL (<100); Triglycerides 76 mg/dL (<150)
[2024-04-20 10:45] LABS: Prostate Specific Antigen < 0.10 ng/mL (<0.05-4.0)
== END 2024-04-20 07:12 | disposition home or self-care (01) ==
LOC: HO.HMGCLDS 07:11
PROVIDERS: PCP Internal Medicine; Referring Provider Urology; Visit Provider Internal Medicine
DX: Z13.220 Encounter for screening for lipoid disorders (principal); C61 Malignant neoplasm of prostate; Z12.5 Encounter for screening for malignant neoplasm of prostate
CPT/HCPCS: 36415; 80061; 84153

== ENCOUNTER 2024-04-20 13:19 | Outpatient (REF) | payer SELFPAY | END 2024-04-20 13:20 | disposition home or self-care (01) | LOC: HO.HAP 13:19 | PROVIDERS: Visit Provider Internal Medicine | DX: Z46.1 Encounter for fitting and adjustment of hearing aid (principal); H90.3 Sensorineural hearing loss, bilateral | CPT/HCPCS: 92593 ==

== ENCOUNTER 2024-04-28 11:43 | Outpatient (AMB) | payer MEDICARE, BC, SELFPAY ==
--- NOTE | 2024-04-28 11:48 | A.OFFVIS_ITS ---
Intake Visit Reasons: 6M PSA(psa?) Intake Note: Patient is present for 6M/PSA Urology Medication:NONE Antibiotic Allergy:NONE Blood Thinner:ASPIRIN Photographer Lithographic Required: No Allergies Aspirin Allergy (Unknown, Uncoded 05/18/24 09:22) Sensitivity/bleeds HPI Comments Details: Jelani is a very pleasant male. He is a patient of Dr. Hill. 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 - urinary incontinence Six-month follow-up PSA remains well controlled PSA 10/16 <0.1, 04/18 <0.1 Penile clamp tolerated Urinary incontinence Secondary to cystoscopy performed [facility] for fulguration of radiation cystitis Leakage nonresponsive to Kegel exercises Tolerates penile clamp Remains on aspirin secondary to cardiac valve, stent, quad bypass 6 month follow-up PSA Prostate cancer - radical prostatectomy [facility] [place] 8, biochemical failure with radiation therapy Diagnosed many years ago Treatment at [facility] with radical prostatectomy Biochemical failure with subsequent radiation therapy and hormones PSA 01/13 <0.1, 10/14 < 0.1 T 80, 04/16 <0.1, 10/15 <0.1, 04/17 <0.1 Had been on continuous bicalutamide which was stopped 2020 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 Has experienced hemorrhagic cystitis Treated with hyperbaric oxygen in 2018 - has claustrophobia Recurrent episode 2020 - required emergency fulguration of bladder at [facility] May benefit from combination vitamin-E and pentoxifylline [facility] Medical History BMI 28.0-28.9,adult History of sigmoidoscopy Prostate cancer Surgical History History of cystoscopy H/O rectal polypectomy History of coronary artery stent placement S/P CABG x 1 History of prostatectomy Family History Father CAD (coronary artery disease) Myocardial infarction Mother Diverticulitis Social History Housing: House Alcohol intake: current Alcohol intake frequency: a few times a week Patient Tobacco Use Status: Former Tobacco user Tobacco use type: Cigarette e-Cigarette/Vaping Use: Never Used Second Hand Smoke Exposure: Yes service: No Current occupational status: retired Cognitive needs: No Hearing needs: Yes Vision needs: No Review of Systems Const Denies chills and Denies fever(s) Card Reports no additional complaints and Denies syncope Resp Denies cough GI Denies abdominal pain and Denies heartburn Reports as per HPI and Denies change in libido Neuro Denies syncope Psych Denies change in libido Endo Denies change in libido Physical Exam Const General: cooperative, healthy appearing, comfortable and no acute distress Orientation/consciousness: patient oriented x3 HEENT Face and sinus: Yes normal facial exam Mouth: moist mucous membranes Neck Neck: Yes normal visual inspection, Yes full ROM and Yes trachea midline Chest Chest palpation & inspection: normal inspection of the chest Resp Effort & Inspection: normal respiratory effort, able to speak in complete sentences and no respiratory distress GI Inspection: Yes normal to inspection Back/Spine/Pelvis Cervical Spine: normal cervical lordosis Thoracic/Lumbar Spine: thoracic and lumbar spine normal to inspection Skin General skin exam: no rashes or lesions noted Neuro General: patient oriented x3, gait normal, tone normal and moves all extremities Extrem General: Yes normal to inspection and Yes capillary refill normal Assessment & Plan Assessment & Plan (1) Prostate cancer: Code(s): C61 - Malignant neoplasm of prostate Category: Medical (2) Radiation cystitis: Code(s): N30.40 - Irradiation cystitis without hematuria Category: Medical (3) Stress incontinence, male: Code(s): N39.3 - Stress incontinence (female) (male) Category: Medical Plan Six-month follow-up PSA G Code G2211 Has been applied in accordance with CMS guidelines ( Medicare and Medicaid programs; [place] 2023 Payment Policies ) to convey the inherent complexity in ongoing patient care within the urology clinic. This deliberate utilization aligns with the visits complexity associated with medical care services serving as a focal point for necessary healthcare, addressing the patient's singular serious or complex condition. This judicious use ensure was appropriate reimbursement, especially in the context of managing such conditions within our specialized, longitudinal urologic practice. This patient has a complex and chronic urologic condition that requires longitudinal follow-up. CMS, Medicare and Medicaid programs; [place] 2023 Payment Policies Fed. Reg 88 (50): 56170-70874 (Dec.302022) Orders: Orders Prostate Specific Antigen 6 Months C61 - Malignant neoplasm of prostate Patient Instructions: Imaging studies, laboratory and physical exam results were discussed and reviewed in detail. No major barriers to patient understanding were identified. An opportunity to ask questions regarding the treatment plan was provided. All questions were answered. The patient expressed understanding and agreement with the above treatment plan. The patient is aware they should contact our office by phone for worsening of their current condition or the appearance of new urologic symptoms. Compliance is encouraged with any medications and followup testing that is ordered. It is a privilege to participate in the urologic care of your patient. If you have any questions or concerns regarding treatment for the above conditions, or other urologic issues, please do not hesitate to contact me. The office telephone contact is [phone]. This note is constructed using voice recognition software. While every effort has been made to ensure accuracy entry level automotive technician errors may have been included. Yours sincerely, Dr Pato Wells MD, [facility] - Urology Providers of Expert, Compassionate Care for the Genitourinary System Coding Level of Care Code Est Pt Level 3 (75074) Complex EM visit Add On G2211 Diagnoses Prostate cancer C61 Radiation cystitis N30.40 Stress incontinence, male N39.3
== END 2024-04-28 12:19 | disposition home or self-care (01) ==
PROVIDERS: PCP Internal Medicine; Visit Provider Urology
DX: C61 Malignant neoplasm of prostate (principal); N30.40 Irradiation cystitis without hematuria; N39.3 Stress incontinence (female) (male)
CPT/HCPCS: 99213; G2211

== ENCOUNTER → 2024-04-28 11:43 | Outpatient (BNVA) | payer MEDICARE, BC, SELFPAY | PROVIDERS: PCP Internal Medicine; Visit Provider Urology | DX: C61 Malignant neoplasm of prostate (principal); N30.40 Irradiation cystitis without hematuria; N39.3 Stress incontinence (female) (male) | CPT/HCPCS: 99212 ==

== ENCOUNTER 2024-05-18 09:15 | Outpatient (AMB) | payer MEDICARE, BC, SELFPAY ==
--- NOTE | 2024-05-18 09:21 | A.OFFPC_ITS ---
Vital Signs 05/18/24 09:22 Height 5 ft 9 in Weight 190 lb 8 oz BMI 28.1 BP 110/70 Blood Pressure Location Lt brachial Position Sitting Pulse 50 Pulse Source Pulse Oximeter Pulse Oximetry (%) 98 Oxygen Delivery Method Room Air Intake Visit Reasons: 3mth f/u Intake Note: Patient is here to follow up on HTN, GERD, HLD. Screw Machine Set Up Operator Tool Required: No District Wildlife Manager: Not Required per policy Accompanied by: Self / Same As Patient Allergies Aspirin Allergy (Unknown, Uncoded 05/18/24 09:22) Sensitivity/bleeds Medication List - Last Reconciled 05/18/24 by Ptee Brunner MD aspirin 81 mg PO DAILY blood pressure test kit-large As directed esomeprazole magnesium 40 mg PO DAILY metoprolol tartrate 50 mg PO BID rosuvastatin 40 mg PO DAILY Tobacco use date assessed: 05/18/24 Fall risk assessment: 1 Fall in past year Last assessed Fall Risk: 05/18/24 Dental Screening Dental Screen Date: 07/15/23 HPI 3mth f/u HPI Details HTN on Rx; doing well and compliant [facility] Medical History BMI 28.0-28.9,adult History of sigmoidoscopy Prostate cancer Surgical History History of cystoscopy H/O rectal polypectomy History of coronary artery stent placement S/P CABG x 1 History of prostatectomy Family History Father CAD (coronary artery disease) Myocardial infarction Mother Diverticulitis Social History Housing: House Alcohol intake: current Alcohol intake frequency: a few times a week Patient Tobacco Use Status: Former Tobacco user Tobacco use type: Cigarette e-Cigarette/Vaping Use: Never Used Second Hand Smoke Exposure: Yes service: No Current occupational status: retired Cognitive needs: No Hearing needs: Yes Vision needs: No Questionnaire Thrive Questionnaire Date Thrive assessed: 07/15/23 Are you currently unemployed and looking for a job?: I choose not to answer this question RIAZ-7 AMB Questionnaire RIAZ-7 Date RIAZ - 7 assessed: 07/15/23 Source: Developed by Drs. Faheem Lee, Lexus Stevenson, Marcus Haley and colleagues, with an educational mariposa from [employer]. Review of Systems Const Denies chills, Denies headache(s) and Denies weight loss ENT Denies headache(s) Card Denies chest pain, Denies syncope, Denies irregular heart rhythm and Denies dyspnea Resp Denies chest congestion, Denies cough and Denies dyspnea GI Denies abdominal pain, Denies change in stool character, Denies nausea and Denies vomiting Musc Denies deformity and Denies joint swelling Neuro Denies syncope and Denies headache(s) Physical exam (Primary Care) Vital Signs: Last Vital Signs Pulse 50 05/18/24 09:22 BP 110/70 05/18/24 09:22 Pulse Ox 98 05/18/24 09:22 Oxygen Delivery Method Room Air 05/18/24 09:22 BMI result Body Mass Index 28.1 Tobacco/Smoking Status: Tobacco use Status Tobacco use date assessed 05/18/24 05/18/24 09:26 Patient Tobacco Use Status Former Tobacco user 05/18/24 09:26 Tobacco use type Cigarette 05/18/24 09:26 e-Cigarette/Vaping Use Never Used 05/18/24 09:26 Thrive Assessment: Date of Thrive Assessment Date Thrive assessed 07/15/23 05/18/24 09:26 Const General: cooperative, comfortable, no acute distress and alert Neck Neck: Yes no lymphadenopathy Thyroid: Thyroid normal Resp Effort & Inspection: normal respiratory effort Auscultation: clear to auscultation bilaterally Percussion: percussion normal Cardio Jugular venous distension: no JVD Palpation: normal PMI Rate: regular rate Rhythm: regular rhythm Heart sounds: S1 normal heart sound present and S2 normal heart sound present GI Inspection: Yes normal to inspection Palpation (GI): No hepatosplenomegaly present Skin General skin exam: no rashes or lesions noted Extrem General: Yes no clubbing, cyanosis or edema Coding Level of Care Code Est Pt Level 3 (77524) Diagnoses Hypertension I10 Assessment & Plan Assessment & Plan (1) Hypertension: Code(s): I10 - Essential (primary) hypertension Category: Medical Plan stable; same rx Orders: Orders Complete Blood Count Auto Diff Today Z13.0 - Encounter for screening for diseases of the blood and blood-forming organs and certain disorders involving the immune mechanism Comprehensive [place]. Panel Fast Today Z13.9 - Encounter for screening, unspecified Lipid Panel Today Z13.220 - Encounter for screening for lipoid disorders
[2024-05-18 09:22] VITALS: BP 110/70; PULSE 50; O2SAT 98; BMI 28.1
== END 2024-05-18 09:44 | disposition home or self-care (01) ==
PROVIDERS: PCP Internal Medicine; Visit Provider Internal Medicine
DX: I10 Essential (primary) hypertension (principal)

== ENCOUNTER → 2024-05-18 09:15 | Outpatient (BNVA) | payer MEDICARE, BC, SELFPAY | PROVIDERS: PCP Internal Medicine; Visit Provider Internal Medicine | DX: I10 Essential (primary) hypertension (principal) | CPT/HCPCS: 99212 ==

== ENCOUNTER 2024-07-26 07:16 | Outpatient (REF) | payer MEDICARE, BC, SELFPAY ==
[2024-07-26 10:18] LABS: MANUAL DIFF FLAG NO
[2024-07-26 10:25] LABS: Basophils Absolute Auto 0.1 X10*3/uL (0.0-0.2); Basophils Percent Auto 2.1 % (0-2); Eosinophils Absolute Auto 0.4 X10*3/uL (0.0-0.4); Eosinophils Percent Auto 6.4 % (0-4); Hematocrit 41.8 % (42.0-52.0); Hemoglobin 14.4 g/dl (14.0-18.0); Imm Gran Abs Auto 0.02 X10*3/uL (0.00-0.03); Imm Gran Pct Auto 0.3 % (0.0-0.4); Lymphocytes Absolute Auto 1.7 X10*3/uL (1.2-4.9); Lymphocytes Percent Auto 26.3 % (20-40); Mean Corpuscular HGB Conc 34.4 g/dl (31.0-36.0); Mean Corpuscular Hemoglobin 30.4 pg (27.0-33.0); Mean Corpuscular Volume 88.2 fL (80.0-98.0); Mean Platelet Volume 11.2 fL (9.4-12.4); Monocytes Absolute Auto 0.6 X10*3/uL (0.1-1.2); Monocytes Percent Auto 9.6 % (2-11); Neutrophils Absolute Auto 3.5 x10*3/uL (2.0-8.3); Neutrophils Percent Auto 55.3 % (45-73); Platelet Count 195 X10*3/uL (160-400); Red Blood Count 4.74 X10*6/uL (4.60-5.80); Red Cell Distribution Width 13.6 % (11.0-16.0); White Blood Count 6.3 X10*3/uL (4.8-10.8)
[2024-07-26 11:15] LABS: Alanine Aminotransferase 15 U/L (0-40); Albumin Level 3.7 g/dL (3.5-5.0); Alkaline Phosphatase 62 U/L (39-117); Anion Gap 9 (12-20); Aspartate Amino Transferase 25 U/L (5-37); Bilirubin Total 0.5 mg/dL (0.0-1.0); Blood Urea Nitrogen 15 mg/dL (9-16); Calcium 8.9 mg/dL (8.4-10.2); Carbon Dioxide 27 mmol/L (22-29); Chloride 104 mmol/L (96-108); Cholesterol 117 mg/dL (<200); Estimated Glomerular Filt Rate > 60; Glucose Fasting 100 mg/dL (60-99); HDL Cholesterol 35 mg/dL (>40); LDL Cholesterol Calculated 60 mg/dL (<100); Potassium 4.2 mmol/L (3.3-5.1); Sodium 136 mmol/L (135-145); Total Protein 7.1 g/dL (6.5-8.0); Triglycerides 112 mg/dL (<150)
== END 2024-07-26 07:17 | disposition home or self-care (01) ==
LOC: HO.HMGCLDS 07:16
PROVIDERS: PCP Internal Medicine; Visit Provider Internal Medicine
DX: Z13.0 Encounter for screening for diseases of the blood and blood-forming organs and certain disorders involving the immune mechanism (principal); Z13.220 Encounter for screening for lipoid disorders; Z13.6 Encounter for screening for cardiovascular disorders
CPT/HCPCS: 36415; 80053; 80061; 85025

== ENCOUNTER 2024-07-30 11:22 | Outpatient (AMB) | payer MEDICARE, BC, SELFPAY ==
--- NOTE | 2024-07-30 11:37 | MHC.PC.OV ---
Vital Signs 07/30/24 11:38 Height 5 ft 9 in Weight 193 lb 4 oz BMI 28.5 BP 130/76 Blood Pressure Location Lt brachial Position Sitting Pulse 58 Pulse Source Pulse Oximeter Temp 96.8 F Temp Source Temporal Artery Scan Pulse Oximetry (%) 98 Oxygen Delivery Method Room Air Intake Visit Reasons: 3mth f/u Intake Note: Patient is here to follow up on HTN, GERD, HLD. Dusting And Brushing Machine Operator Required: No Biomedical Engineering Technician: Not Required per policy Accompanied by: Self / Same As Patient Allergies Aspirin Allergy (Unknown, Uncoded 07/30/24 11:38) Sensitivity/bleeds Medication List - Last Reconciled 07/30/24 by Pete Brunner MD aspirin 81 mg PO DAILY blood pressure test kit-large As directed esomeprazole magnesium 40 mg PO DAILY metoprolol tartrate 50 mg PO BID rosuvastatin 40 mg PO DAILY Tobacco use date assessed: 07/30/24 Fall risk assessment: No Falls in past year Last assessed Fall Risk: 07/30/24 Dental Screening Dental Screen Date: 07/30/24 Did you have a dental visit in the last 12 months?: Yes Did you have a dental problem in the last 6 months where you did not have access to dental care?: No Was dental information given to patient?: Patient has dentist HPI 3mth f/u HPI Details HTN and hyperlipidemia; prostate cancer in remission; s/p CABG [facility] Medical History BMI 28.0-28.9,adult History of sigmoidoscopy Prostate cancer Surgical History History of cystoscopy H/O rectal polypectomy History of coronary artery stent placement S/P CABG x 1 History of prostatectomy Family History Father CAD (coronary artery disease) Myocardial infarction Mother Diverticulitis Social History Housing: House Alcohol intake: current Alcohol intake frequency: a few times a week Patient Tobacco Use Status: Former Tobacco user Tobacco use type: Cigarette e-Cigarette/Vaping Use: Never Used Second Hand Smoke Exposure: Yes service: No Current occupational status: retired Cognitive needs: No Hearing needs: Yes (Hearing aide) Vision needs: No Questionnaire PHQ-9 Over the last 2 weeks, how often have you been bothered by any of the following problems? 1. Little interest or pleasure in doing things: not at all 2. Feeling down, depressed, or hopeless: not at all 3. Trouble falling or staying asleep, or sleeping too much: not at all 4. Feeling tired or having little energy: not at all 5. Poor appetite or overeating: not at all 6. Feeling bad about yourself - or that you are a failure or have let yourself or your family down: not at all 7. Trouble concentrating on things, such as reading the newspaper or watching television: not at all 8. Moving or speaking so slowly that other people could have noticed. Or the opposite - being so fidgety or restless that you have been moving around a lot more than usual: not at all 9. Thoughts that you would be better off or of hurting yourself in some way: not at all Total score: 0 Depression Screening Interpretation: Negative Depression Screening Done: Yes Source: Developed by Drs. Faheem Lee, Lexus Stevenson, Marcus Haley and colleagues, with an educational mariposa from [employer]. Thrive Questionnaire Date Thrive assessed: 07/30/24 I am a: Patient What is your living situation today?: I have a steady place to live Within the past 12 months, did the food you bought not last and you didn't have the money to get more?: Never true Within the past 12 months, did you worry whether your food would run out before you got money to buy more?: Never true Do you have trouble paying for medicines?: No Do you have trouble getting transportation to medical appointments?: No Do you have trouble paying your heating and electricity bill?: No Do you have trouble taking care of your child, family member or friend?: No Do you have trouble with day-to-day activities such as bathing, preparing meals, shopping, managing finances, etc.?: No Are you currently unemployed and looking for a job?: No Are you interested in more education?: No Please select the resources that you would like help with: None Currently or been in a relationship where the following occur: No concerns reported THRIVE Score: 0 AUDIT C Alcohol Use Questionnaire (AUDIT-C) 2. How many drinks containing alcohol do you have on a typical day when you are drinking?: 1 or 2 3. How often do you have six or more drinks on one occasion?: Never Total Score: 0 RIAZ-7 AMB Questionnaire RIAZ-7 Date RIAZ - 7 assessed: 07/30/24 Feeling nervous, anxious, or on edge: 0 = Not at all Not being able to stop or control worryin = Not at all Worrying too much about different things: 0 = Not at all Trouble relaxin = Not at all Being so restless that it is hard to sit still: 0 = Not at all Becoming easily annoyed or irritable: 0 = Not at all Feeling afraid as if something awful might happen: 0 = Not at all Total RIAZ-7 score (0-4 normal; 5-9 mild; 10-14 moderate; 15-21 severe): 0 Source: Developed by Drs. Faheem Lee, Lexus Stevenson, Marcus Haley and colleagues, with an educational mariposa from [employer]. Review of Systems Const Denies chills, Denies headache(s) and Denies weight loss ENT Denies headache(s) Card Denies chest pain, Denies syncope, Denies irregular heart rhythm and Denies dyspnea Resp Denies chest congestion, Denies cough and Denies dyspnea GI Denies abdominal pain, Denies change in stool character, Denies nausea and Denies vomiting Musc Denies deformity and Denies joint swelling Neuro Denies syncope and Denies headache(s) Physical exam (Primary Care) Vital Signs: Last Vital Signs Temp 96.8 F 07/30/24 11:38 Pulse 58 07/30/24 11:38 BP 130/76 07/30/24 11:38 Pulse Ox 98 07/30/24 11:38 Oxygen Delivery Method Room Air 07/30/24 11:38 BMI result Body Mass Index 28.5 Tobacco/Smoking Status: Tobacco use Status Tobacco use date assessed 07/30/24 07/30/24 11:42 Patient Tobacco Use Status Former Tobacco user 07/30/24 11:42 Tobacco use type Cigarette 07/30/24 11:42 e-Cigarette/Vaping Use Never Used 07/30/24 11:42 PHQ-9: PHQ-9 Score PHQ-9: Total score 0 07/30/24 11:42 Depression Screening Interpretation: Negative Thrive Assessment: Date of Thrive Assessment Date Thrive assessed 07/30/24 07/30/24 11:42 Currently or been in a relationship where the following occur: No concerns reported Const General: cooperative, comfortable, no acute distress and alert Neck Neck: Yes no lymphadenopathy Thyroid: Thyroid normal Resp Effort & Inspection: normal respiratory effort Auscultation: clear to auscultation bilaterally Percussion: percussion normal Cardio Jugular venous distension: no JVD Palpation: normal PMI Rate: regular rate Rhythm: regular rhythm Heart sounds: S1 normal heart sound present and S2 normal heart sound present GI Inspection: Yes normal to inspection Palpation (GI): No hepatosplenomegaly present Skin General skin exam: no rashes or lesions noted Extrem General: Yes no clubbing, cyanosis or edema Coding Level of Care Code Est Pt Level 3 (74610) Diagnoses Hypertension I10 Assessment & Plan Assessment & Plan (1) Hypertension: Code(s): I10 - Essential (primary) hypertension Category: Medical Plan: stable; same rx
[2024-07-30 11:38] VITALS: BP 130/76; PULSE 58; TEMP 36; O2SAT 98; BMI 28.5
== END 2024-07-30 11:52 | disposition home or self-care (01) ==
PROVIDERS: PCP Internal Medicine; Visit Provider Internal Medicine
DX: I10 Essential (primary) hypertension (principal)

== ENCOUNTER → 2024-07-30 11:22 | Outpatient (BNVA) | payer MEDICARE, BC, SELFPAY | PROVIDERS: PCP Internal Medicine; Visit Provider Internal Medicine | DX: I10 Essential (primary) hypertension (principal) | CPT/HCPCS: 99212 ==

== ENCOUNTER 2024-09-14 10:06 | Outpatient (REF) | payer SELFPAY ==
--- NOTE | 2024-09-14 10:45 | MHC.AU.HA3 ---
Hearing Instrument Follow-Up- Binaural Date of Visit: 09/14/24 Right Ear: Model Yoel, Color, Serial Number: [id number] Tacker Elastic Band Repair Warranty: 03/07/2023 Tacker Elastic Band Loss and Damage Warranty: 03/07/2023 [facility] Service Plan: Battery Size: Rechargeable Waste Collection Driver/Slim Tube: 2xM [place]old/Dome/CShell/SlimTip: Type of Wax Guard: Dispensed By: [facility] Date of Fittin12/28/2019 Left Ear: Yoel, , Color, Serial Number: [id number] Tacker Elastic Band Repair Warranty: 03/07/2023 Tacker Elastic Band Loss and Damage Warranty: 03/07/2023 [facility] Service Plan: Battery Size: Rechargeable Waste Collection Driver/Slim Tube: 2xM [place]old/Dome/CShell/SlimTip: Type of Wax Guard: Dispensed By: [facility] Date of Fittin12/28/2019 Follow-Up Summary: Left aid dropped off weak . Found nautical instrument mechanic clogged with wax and multiple wax guards. Cleaned aid, picked out and vacuumed nautical instrument mechanic, replaced wax guard tail and dome. Listening check positive. Recommendations: Recommendations: Hearing instrument follow-up or maintenance as needed. Diagnosis Code(s): Primary Diagnosis: H90.3 Bilateral Sensorineural Hearing Loss Signature: Provider: Shane Darnell, [facility]
== END 2024-09-14 10:07 | disposition home or self-care (01) ==
LOC: HO.HAP 10:06
PROVIDERS: Visit Provider Internal Medicine
DX: Z46.1 Encounter for fitting and adjustment of hearing aid (principal); H90.3 Sensorineural hearing loss, bilateral
CPT/HCPCS: 92593

== ENCOUNTER 2024-09-14 15:34 | Outpatient (REF) | payer SELFPAY | END 2024-09-14 15:35 | disposition home or self-care (01) | LOC: HO.HAP 15:34 | PROVIDERS: Visit Provider Internal Medicine | DX: Z13.89 Encounter for screening for other disorder (principal) ==

== ENCOUNTER 2024-10-25 11:28 | Outpatient (REF) | payer MEDICARE, BC, SELFPAY ==
[2024-10-25 14:03] LABS: Prostate Specific Antigen < 0.10 ng/mL (<0.05-4.0)
== END 2024-10-25 11:29 | disposition home or self-care (01) ==
LOC: HO.HMGCLDS 11:28
PROVIDERS: PCP Internal Medicine; Visit Provider Urology
DX: C61 Malignant neoplasm of prostate (principal); Z12.5 Encounter for screening for malignant neoplasm of prostate
CPT/HCPCS: 36415; 84153

== ENCOUNTER 2024-10-29 09:23 | Outpatient (AMB) | payer MEDICARE, BC, SELFPAY ==
--- NOTE | 2024-10-29 09:23 | A.OFFVIS_ITS ---
Intake Visit Reasons: 6M PSA tele Intake Note: Patient is present via telehealth for 6M/PSA Urology Medication:NONE Antibiotic Allergy:NONE Blood Thinner:ASPIRIN Energy Efficiency Engineer Required: No Allergies Aspirin Allergy (Unknown, Uncoded 07/30/24 11:38) Sensitivity/bleeds HPI Comments Details: Jelani is a very pleasant male. He is a patient of Dr. Hill. 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 - urinary incontinence Telemedicine Evaluation 15 min Consultation [facility] [employer] Randal Video Six-month follow-up PSA remains well controlled PSA 10/16 <0.1, 04/18 <0.1, 10/17 0.1 Penile clamp tolerated Continue six-month surveillance primarily for radiation cystitis Urinary incontinence Secondary to cystoscopy performed [facility] for fulguration of radiation cystitis Leakage nonresponsive to Kegel exercises Tolerates penile clamp Remains on aspirin secondary to cardiac valve, stent, quad bypass 6 month follow-up PSA Prostate cancer - radical prostatectomy [facility] Cate 8, biochemical failure with radiation therapy Diagnosed many years ago Treatment at [facility] with radical prostatectomy Biochemical failure with subsequent radiation therapy and hormones PSA 01/13 <0.1, 10/14 < 0.1 T 80, 04/16 <0.1, 10/15 <0.1, 04/17 <0.1 Had been on continuous bicalutamide which was stopped 2020 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 Has experienced hemorrhagic cystitis Treated with hyperbaric oxygen in 2018 - has claustrophobia Recurrent episode 2020 - required emergency fulguration of bladder at [facility] May benefit from combination vitamin-E and pentoxifylline [facility] Medical History BMI 28.0-28.9,adult History of sigmoidoscopy Prostate cancer Surgical History History of cystoscopy H/O rectal polypectomy History of coronary artery stent placement S/P CABG x 1 History of prostatectomy Family History Father CAD (coronary artery disease) Myocardial infarction Mother Diverticulitis Social History Housing: House Alcohol intake: current Alcohol intake frequency: a few times a week Patient Tobacco Use Status: Former Tobacco user Tobacco use type: Cigarette e-Cigarette/Vaping Use: Never Used Second Hand Smoke Exposure: Yes service: No Current occupational status: retired Cognitive needs: No Hearing needs: Yes (Hearing aide) Vision needs: No Review of Systems Const All systems reviewed & are unremarkable except as noted in HPI and below Reports no additional complaints Resp Reports no additional complaints GI Reports no additional complaints Reports as per HPI Musc Reports no additional complaints Physical Exam Telemedicine evaluation Appropriate responses Regular breathing rate and rhythm HEENT Head: Yes normal to inspection Ears: hearing grossly normal bilaterally Eyes General: appearance normal, both eyes and all related structures Neck Neck: Yes normal visual inspection Chest Chest palpation & inspection: normal inspection of the chest Resp Effort & Inspection: normal respiratory effort and able to speak in complete sentences Telehealth Telehealth Telehealth Platform: [facility] [employer] Location of provider rendering services: practice address Location of patient: address on file Patient Identification confirmed using: Name, : Yes Telehealth method: video Patient verbally consented to treatment: Yes Patient verbally consented to billing insurance company: Yes Patient informed of any privacy concerns related to visit: Yes Minutes spent on Phone/Video with Pt.: 15 Assessment & Plan Assessment & Plan (1) Radiation cystitis: Code(s): N30.40 - Irradiation cystitis without hematuria Category: Medical (2) Stress incontinence, male: Code(s): N39.3 - Stress incontinence (female) (male) Category: Medical (3) Prostate cancer: Code(s): C61 - Malignant neoplasm of prostate Category: Medical Plan Continue six-month surveillance Orders: Orders Testosterone, Total 6 Months C61 - Malignant neoplasm of prostate Prostate Specific Antigen 6 Months C61 - Malignant neoplasm of prostate Patient Instructions: This note is constructed using voice recognition software. While every effort has been made to ensure accuracy jail keeper errors may have been included. Imaging studies, laboratory and physical exam results were discussed and reviewed in detail. No major barriers to patient understanding were identified. An opportunity to ask questions regarding the treatment plan was provided. All questions were answered. The patient expressed understanding and agreement with the above treatment plan. The patient is aware they should contact our office by phone for worsening of their current condition or the appearance of new urologic symptoms. Compliance is encouraged with any medications and followup testing that is ordered. It is a privilege to participate in the urologic care of your patient. If you have any questions or concerns regarding treatment for the above conditions, or other urologic issues, please do not hesitate to contact me. The office telephone contact is [phone]. Sincerely, Dr Pato Wells MD, [facility] - Urology Compassionate Specialist Care for the Genitourinary System Coding Level of Care Code Tele Est Pt Level 3 (59672) Complex EM visit Add On G2211 Diagnoses Radiation cystitis N30.40 Stress incontinence, male N39.3 Prostate cancer C61
== END 2024-10-29 10:27 | disposition home or self-care (01) ==
LOC: HO.HUSH 09:23
PROVIDERS: PCP Internal Medicine; Visit Provider Urology
DX: N30.40 Irradiation cystitis without hematuria (principal); N39.3 Stress incontinence (female) (male); C61 Malignant neoplasm of prostate
CPT/HCPCS: 99213; G2211

== ENCOUNTER → 2024-10-29 09:23 | Outpatient (BNVA) | payer MEDICARE, BC, SELFPAY | PROVIDERS: PCP Internal Medicine; Visit Provider Urology ==

== ENCOUNTER 2024-11-30 13:22 | Outpatient (AMB) | payer MEDICARE, BC, SELFPAY ==
[2024-11-30 13:28] VITALS: BP 124/86; PULSE 79; O2SAT 97; BMI 28.1
--- NOTE | 2024-11-30 13:28 | A.OFFPC_ITS ---
Vital Signs 11/30/24 13:28 Height 5 ft 9 in Weight 190 lb 8 oz BMI 28.1 BP 124/86 Blood Pressure Location Lt brachial Position Sitting Pulse 79 Pulse Source Pulse Oximeter Pulse Oximetry (%) 97 Oxygen Delivery Method Room Air Intake Visit Reasons: GIOVANNA to Gage Maker Required: No Accompanied by: Self / Same As Patient Allergies Aspirin Allergy (Unknown, Uncoded 11/30/24 14:11) Sensitivity/bleeds Medication List - Last Reconciled 11/30/24 by Obinna Mccauley MD aspirin 81 mg PO DAILY blood pressure test kit-large As directed esomeprazole magnesium 40 mg PO DAILY metoprolol tartrate 50 mg PO BID rosuvastatin 40 mg PO DAILY Tobacco use date assessed: 11/30/24 Fall risk assessment: No Falls in past year Last assessed Fall Risk: 11/30/24 Dental Screening Dental Screen Date: 11/30/24 Did you have a dental visit in the last 12 months?: Yes Did you have a dental problem in the last 6 months where you did not have access to dental care?: No Was dental information given to patient?: Patient has dentist HPI GIOVANNA to HPI Details Patient comes in today for his follow-up visit - is transferring over Dr. Brunner, retired from the practice a few months ago Patient states that he feels okay He denies any headaches or dizziness Denies any chest pains, no shortness of breath No nausea/vomiting, no abdominal pain No change in bowel habits noted [facility] Medical History (Updated 12/06/24 @ 02:06 by Obinna Mccauley MD) Coronary artery disease Pure hypercholesterolemia Essential hypertension BMI 28.0-28.9,adult History of sigmoidoscopy Prostate cancer Surgical History History of cystoscopy H/O rectal polypectomy History of coronary artery stent placement S/P CABG x 1 History of prostatectomy Family History Father CAD (coronary artery disease) Myocardial infarction Mother Diverticulitis Social History Housing: House Alcohol intake: current Alcohol intake frequency: a few times a week Patient Tobacco Use Status: Former Tobacco user Tobacco use type: Cigarette e-Cigarette/Vaping Use: Never Used Second Hand Smoke Exposure: Yes service: No Current occupational status: retired Cognitive needs: No Hearing needs: Yes (Hearing aide) Vision needs: No Questionnaire PHQ-9 Over the last 2 weeks, how often have you been bothered by any of the following problems? 1. Little interest or pleasure in doing things: not at all 2. Feeling down, depressed, or hopeless: not at all 3. Trouble falling or staying asleep, or sleeping too much: not at all 4. Feeling tired or having little energy: not at all 5. Poor appetite or overeating: not at all 6. Feeling bad about yourself - or that you are a failure or have let yourself or your family down: not at all 7. Trouble concentrating on things, such as reading the newspaper or watching television: not at all 8. Moving or speaking so slowly that other people could have noticed. Or the opposite - being so fidgety or restless that you have been moving around a lot more than usual: not at all 9. Thoughts that you would be better off or of hurting yourself in some way: not at all Total score: 0 Depression Screening Interpretation: Negative Depression Screening Done: Yes 72674 - PHQ-9 Billing: Yes Source: Developed by Drs. Faheem Lee, Lexus Stevenson, Marcus Haley and colleagues, with an educational mariposa from [employer]. Thrive Questionnaire Date Thrive assessed: 11/30/24 I am a: Patient What is your living situation today?: I have a steady place to live Within the past 12 months, did the food you bought not last and you didn't have the money to get more?: I choose not to answer this question Within the past 12 months, did you worry whether your food would run out before you got money to buy more?: I choose not to answer this question Do you have trouble paying for medicines?: I choose not to answer this question Do you have trouble getting transportation to medical appointments?: I choose not to answer this question Do you have trouble paying your heating and electricity bill?: I choose not to answer this question Do you have trouble taking care of your child, family member or friend?: I choose not to answer this question Do you have trouble with day-to-day activities such as bathing, preparing meals, shopping, managing finances, etc.?: I choose not to answer this question Are you currently unemployed and looking for a job?: I choose not to answer this question Are you interested in more education?: I choose not to answer this question Please select the resources that you would like help with: None Currently or been in a relationship where the following occur: I choose not to answer THRIVE Score: 0 AUDIT C Alcohol Use Questionnaire (AUDIT-C) 1. How often do you have a drink containing alcohol?: Never 3. How often do you have six or more drinks on one occasion?: Never Total Score: 0 Score Reviewed/Action Taken: Yes RIAZ-7 AMB Questionnaire RIAZ-7 Date RIAZ - 7 assessed: 11/30/24 Feeling nervous, anxious, or on edge: 0 = Not at all Not being able to stop or control worryin = Not at all Worrying too much about different things: 0 = Not at all Trouble relaxin = Not at all Being so restless that it is hard to sit still: 0 = Not at all Becoming easily annoyed or irritable: 0 = Not at all Feeling afraid as if something awful might happen: 0 = Not at all Total RIAZ-7 score (0-4 normal; 5-9 mild; 10-14 moderate; 15-21 severe): 0 Source: Developed by Drs. Faheem Lee, Lexus Stevenson, Marcus Haley and colleagues, with an educational mariposa from [employer]. Review of Systems Const Denies chills, Denies fatigue, Denies fever(s) and Denies headache(s) ENT Denies dysphagia, Denies dizziness, Denies otalgia, Denies headache(s), Denies neck pain, Denies odynophagia and Denies sore throat Card Denies chest pain, Denies palpitations and Denies dyspnea Resp Denies chest congestion, Denies cough and Denies dyspnea GI Denies abdominal pain, Denies constipation, Denies dysphagia, Denies heartburn, Denies diarrhea, Denies nausea, Denies odynophagia and Denies vomiting Denies difficulty urinating, Denies dysuria, Denies nocturia and Denies urinary frequency Musc Denies back pain and Denies neck pain Skin/Breast Denies rash Neuro Denies dizziness and Denies headache(s) Endo Denies fatigue and Denies palpitations Physical exam (Primary Care) Vital Signs: Last Vital Signs Pulse 79 11/30/24 13:28 BP 124/86 11/30/24 13:28 Pulse Ox 97 11/30/24 13:28 Oxygen Delivery Method Room Air 11/30/24 13:28 BMI result Body Mass Index 28.1 Tobacco/Smoking Status: Tobacco use Status Tobacco use date assessed 11/30/24 11/30/24 13:36 Patient Tobacco Use Status Former Tobacco user 11/30/24 13:32 Tobacco use type Cigarette 11/30/24 13:32 e-Cigarette/Vaping Use Never Used 11/30/24 13:32 PHQ-9: PHQ-9 Score PHQ-9: Total score 0 11/30/24 14:14 Depression Screening Interpretation: Negative Thrive Assessment: Date of Thrive Assessment Date Thrive assessed 11/30/24 11/30/24 13:36 Currently or been in a relationship where the following occur: I choose not to answer Const General: no acute distress and alert HENMT Ears: TM's normal bilaterally and EAC's normal Throat: Yes posterior oropharynx normal and Yes tonsils normal (no TP congestion) Neck Neck: Yes supple and No lymphadenopathy Thyroid: Thyroid normal Resp Auscultation: clear to auscultation bilaterally, no rales and no wheezes Cardio Rate: regular rate Rhythm: regular rhythm Heart sounds: no murmurs GI Palpation (GI): Soft to palpation and nontender Auscultation: normal bowel sounds General: Yes no CVA tenderness Back/Spine/Pelvis Back: no CVA tenderness Thoracic/Lumbar Spine: No lumbar spinal tenderness Skin Rashes: no rashes Extrem General: Yes no clubbing, cyanosis or edema Coding Level of Care Code Est Pt Level 4 (63100) Diagnoses Essential hypertension I10 Pure hypercholesterolemia E78.00 Coronary artery disease involving [place] coronary artery of [place] heart without angina pectoris I25.10 Coronary Disease-Associated Artery/Lesion type: [place] artery [place] vs. 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 Prostate cancer C61 Overweight (BMI 25.0-29.9) E66.3 Additional Codes PHQ-9 - 31589 - PHQ-9 Billing: Yes ([id number]) Assessment & Plan Assessment & Plan (1) Essential hypertension: Code(s): I10 - Essential (primary) hypertension Category: Medical Plan: Reinforced low sodium diet - goal is systolic BP of at least 130 to 140 mm or less Continue Metoprolol 50 mg BID (2) Pure hypercholesterolemia: Code(s): E78.00 - Pure hypercholesterolemia, unspecified Category: Medical Plan: Reinforced low cholesterol diet Continue Rosuvastatin 40 mg QD Will have patient recheck his labs and fasting lipids in 4 months (3) Coronary artery disease: Code(s): I25.10 - Atherosclerotic heart disease of [place] coronary artery without angina pectoris Category: Medical Qualifiers: Coronary Disease-Associated Artery/Lesion type: [place] artery [place] vs. 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3 - Overweight Category: Medical Plan: Reinforced diet; exercise and weight loss are not realistic due to patient's age and physical issues Plan Follow up in 4 months Orders: Orders Complete Blood Count Auto Diff 4 Months D64.9 - Anemia, unspecified Comprehensive [place]. Panel Fast 4 Months E78.00 - Pure hypercholesterolemia, unspecified Lipid Panel 4 Months E78.00 - Pure hypercholesterolemia, unspecified TSH reflex Free T4 4 Months E78.00 - Pure hypercholesterolemia, unspecified Vitamin D 25-OH Total 4 Months E55.9 - Vitamin D deficiency, unspecified UA CC w/rflx Micro + Cult 4 Months R30.0 - Dysuria Vitamin B12 and Folate 4 Months E53.8 - Deficiency of other specified B group vitamins
--- OUTSIDE RECORDS SUMMARY | 2024-11-30 14:05 | XMS_ITS | Patient Health Record ---
Author Organization [facility] Address [address] [place] [address] Care Team Providers Care Harness Mender Name Role Phone Pete Brunner MD Primary Care Provider Faheem Bowden Unavailable [phone] Ronny Watkins Unavailable Unavailable Reason For Referral No Information Medications Medication SIG (Take, Route, Frequency, Duration) Notes Start Date End Date Status Metoprolol Tartrate 25 MG 1 tablet Orall y Twice a day Active Crestor 25 mg 1 tablet Orally Once a day Active NexIUM 40 MG 1 capsule Orally Once a day Active Aspirin 81 MG 1 tablet Orally Once a day Active Mesalamine 1000 MG 1 suppository at bedtime Rectal BID Finished the end of 06/2015 Not-Taking hydroCHLOROthiazide 12.5 MG 1 tablet Orally Once a day Not-Taking Hydrocortisone Michi-Pramoxine 1-1 % 1 application as needed Rectal TID for 30 days 06/22/2015 Not-Taking Immunizations Vaccine Route Administration Date Status Comme nts Flu vaccine no Preserv 3 and > Unknown 01/24/2015 Admin istered Problems Problem Type SNOMED Code ICD Code Onset Dates Problem Status W/U Status Risk Notes Problem [id number] 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 Problem [id number] Rectal pain (K62.89) Active confirmed Plan Of Treatment Pending Test Test Name Order Date CT PELVIS WITH CONTRAST 06/20/2015 Future Test Test Name Order Date FLEXIBLE SIGMOIDOSCOPY, DIAGNOSTIC 06/20 Insurance Providers Payer Name Payer Address Payer Phone Subscriber Number Group Number Insured Name Patient Relationship to Insured Coverage Start Date Coverage End Date MEDICARE OF [employer] [address] [place] [address] [phone] [id number] FELICITAS VASQUEZ Self - patient is the insured [facility] [address] [place], [place] [id number] [phone] [id number] FELICITAS VASQUEZ Self - patient is the insured Medical (General) History Medical History History ICD Code Hypertension Prostate cancer as below GI bleed over 20 years ago due to peptic ulcer disease Hyperlipidemia Denies DM,CVA,Lung disease,renal disease MO in 1995--has 2 stents--ca s most recent cardiac catheterization was in 2004 colonoscopy in 2005 with a s mall tubular adenoma that was removed; he had a followup colonoscopy in February 2011 that was negative other than some diverticulosis and internal hemorrhoids. 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 Watkisn
== END 2024-11-30 14:16 | disposition home or self-care (01) ==
LOC: HO.HMCH 13:23
PROVIDERS: PCP Internal Medicine; Visit Provider Internal Medicine
DX: I10 Essential (primary) hypertension (principal); C61 Malignant neoplasm of prostate; E66.3 Overweight; Z68.28 Body mass index [BMI] 28.0-28.9, adult; E78.00 Pure hypercholesterolemia, unspecified; I25.10 Atherosclerotic heart disease of native coronary artery without angina pectoris; K21.9 Gastro-esophageal reflux disease without esophagitis; N30.40 Irradiation cystitis without hematuria

== ENCOUNTER → 2024-11-30 13:22 | Outpatient (BNVA) | payer MEDICARE, BC, SELFPAY | PROVIDERS: PCP Internal Medicine; Visit Provider Internal Medicine | DX: I10 Essential (primary) hypertension (principal); E78.00 Pure hypercholesterolemia, unspecified; I25.10 Atherosclerotic heart disease of native coronary artery without angina pectoris; K21.9 Gastro-esophageal reflux disease without esophagitis; N30.40 Irradiation cystitis without hematuria; C61 Malignant neoplasm of prostate; E66.3 Overweight; Z68.28 Body mass index [BMI] 28.0-28.9, adult; Z71.3 Dietary counseling and surveillance | CPT/HCPCS: 96127; 99212 ==

== ENCOUNTER 2025-03-30 07:13 | Outpatient (REF) | payer MEDICARE, BC, SELFPAY ==
--- OUTSIDE RECORDS SUMMARY | 2025-03-27 23:59 | XMS_ITS | Continuity of Care Document ---
Author Organization [facility] Address [address] [place] [phone]- Care Team Providers Care Lumber Checker Name Role Phone Kannan STUBBS, Pete Mancini Primary Care Physician Encounter [facility] Date(s): 02/25/25 - 03/27/25 [facility] [address] [place] [phone]- Encounter Type: Triage Allergies, Adverse Reactions, Alerts Substance Criticality Severity Reaction Reaction Severity Status aspirin Active Immunizations Given and Recorded Vaccine Date Status Refusal Reason influenza virus vaccine, inactivated 02/26/18 Give n pneumococcal 13-valent vaccine 02/26/18 Given Medications amoxicillin 500 mg oral tablet See Instructions, take four 500mg amoxicllin tablets to make the total dose 2gm, 30-60min before all dental appointments, # 4 tablet, 0 Refills, Acute 02/17/27 12:00:00 AM EDT, 02/21/25 11:29:00 AM EDT, [facility]/pharmacy #[id number], Partial fill upon patient request if the prescription is for a schedule II opioid drug., 175, cm, 10/01/24 13:16:00 EDT, Height Start Date: 02/21/25 Stop Date: 02/17/27 Status: Ordered Medication Dispense Status: Completed Quantity: 4.0 Unit: tablet Total Allowed Fills: 1 Fills Dispensed: 0 aspirin 81 mg oral capsule 1 capsule = 81 mg, By Mouth, Every 24 hours, 0 Refills, Maintenance, 09/24/23 2:48:00 PM EDT, Partialfill upon patient request if the prescription is for a schedule II opioid drug. Start Date: 09/24/23 Status: Ordered Medication Dispense Status: Completed Total Allowed Fills: 1 Fills Dispensed: 0 clopidogrel 75 mg oral tablet 75 mg, 1, tablet, By Mouth, Daily, # 30 tablet, Refills 0, Tot. Refills 0, Maintenance, 11/02/22 1:40:00 PM EDT, Route to Pharmacy Electronically, [facility]/pharmacy #[id number], Partial fill upon patient requestif the prescription is for a schedule II opioid drug., 175, cm, 08/29/22 12:16:00 EDT, Height, 78.1, kg, 03/01/21 1:30:00 EDT, Dry Weight Start Date: 11/02/22 Status: Ordered Medication Dispense Status: Completed Quantity: 30.0 Unit: tablet Total Allowed Fills: 1 Fills Dispensed: 0 esomeprazole 40 mg oral enteric coated capsule 1 capsule = 40 mg, By Mouth, Daily, Maintenance, 02/25/18 8:44:00 PM EDT, EC Capsule Start Date: 02/25/18 Status: Ordered Medication Dispense Status: Completed Total Allowed Fills: 1 Fills Dispensed: 0 Metoprolol Tartrate 50 mg oral tablet 1 tablet, By Mouth, 2 times a day, # 180 tablet, 3 Refills, Maintenance, 02/25/25 3:49:00 PM EDT, [facility]/pharmacy #[id number], 175, cm, 10/01/24 13:16:00 EDT, Height Start Date: 02/25/25 Status: Ordered Medication Dispense Status: Completed Quantity: 180.0 Unit: tablet Total Allowed Fills: 4 Fills Dispensed: 0 rosuvastatin 40 mg oral tablet See Instructions, TAKE 1 TABLET BY MOUTH EVERY DAY, # 90 tablet, 3 Refills, Maintenance, 02/21/25 11:31:00 AM EDT, [facility]/pharmacy #[id number], 175, cm, 10/01/24 13:16:00 EDT, Height Start Date: 02/21/25 Status: Ordered Medication Dispense Status: Completed Quantity: 90.0 Unit: tablet Total Allowed Fills: 4 Fills Dispensed: 0 Problem List Condition Confirmation Course Effective Dates Status H ealth Status Informant Hematuria Confirmed Active Coronary artery disease Confirmed Active S/P AVR Confirmed Active Hyperlipidemia Confirmed Active Hypertension Confirmed Active PAF (paroxysmal atrial fibrillation) Confirmed Active Patient Care team information Care Team Personnel Name: Rosey Veliz RN Position: S RN Member Role: Primary Care Nurse Name: Lissett Zaldivar RN Position: [facility] SN RN Member Role: Primary Care Nurse Name: Morris Mendoza CRNA Position: [facility] SN RN Member Role: Primary Care Nurse Name: Pete Brunner MD Position: Reference Physician Member Role: PCP Address: [address] [place] [id number] Telecom: Name: Shmuel Hensley RN Position: [facility] RN Member Role: Primary Care Nurse Name: Jenifer Reyes RN Position: [facility] AMB Nurse Member Role: Primary Care Nurse Name: Jenifer Powell RN Position: [facility] OB RN Member Role: Primary Care Nurse Name: Rita Singh RN Position: [facility] RN Member Role: Primary Care Nurse Care Team Related Persons Name: SHIRA QUESADA Name: ROSIE RUSSELL Insurance Providers Guarantor name: FELICITAS RUSSELL Health Plan Information #: 1 Payer: MEDICARE B Payer Identifier: NA Member Number: [id number] Group Number: [id number] Subscriber Identifier: NA Relationship to Subscriber: self Coverage Type: NA Coverage Verification Date: NA Telecom: NA Address: [facility] Information #: 2 Payer: [facility] Payer Identifier: NA Member Number: [id number] Group Number: [id number] Subscriber Identifier: NA Relationship to Subscriber: self Coverage Type: Medicare Other Coverage Verification Date: NA Telecom: NA Address:
--- OUTSIDE RECORDS SUMMARY | 2025-03-30 07:20 | XMS_ITS | Patient Health Record ---
Author Organization [facility] Address [address] [place] [address] Care Team Providers Care Sales Agent Fire Insurance Name Role Phone Pete Brunner MD Primary Care Provider Faheem Bowden Unavailable [phone] Ronny Watkins Unavailable Unavailable Reason For Referral [...] 1-1 % 1 application as needed Rectal TID; Duration: 30 days 06/22/2015 Not-Taking Immunizations Vaccine Route Administration Date Status Comme nts Flu vaccine no Preserv 3 and > Unknown 01/24/2015 Admin istered Problems Problem Type SNOMED Code ICD Code Onset Dates Problem Status W/U Status Risk Notes Problem Radiation proctitis (999823503) 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 Problem Rectal pain (86299939) Rectal pain (K62.89) Active confirmed Plan Of Treatment Pending Test Test Name Order Date CT PELVIS WITH CONTRAST 06/20/2015 Future Test Test Name Order Date FLEXIBLE SIGMOIDOSCOPY, DIAGNOSTIC 06/20 Insurance Providers Payer Name Payer Address Payer Phone Subscriber Number Group Number Insured Name Patient Relationship to Insured Coverage Start Date Coverage End Date MED[place] OF [place] [address] [place] [address] [id number] FELICITAS VASQUEZ Self - patient is the insured [facility] [address] [place], [place] [id number] FELICITAS VASQUEZ Self - patient is the insured Medical (General) History Medical History History ICD Code Hypertension Prostate cancer as below GI bleed over 20 years ago due to peptic ulcer disease Hyperlipidemia Denies DM,CVA,Lung disease,renal disease [place] in 1995--has 2 stents--hi s most recent cardiac catheterization was in [...] History Surgery Date(Month/Year) Radical Prostatectomy at the [facility] for prostate cancer in 11/2013--- due to a rising PSA level he underwent radiation treatments from February 2015 through mid-April [address] Watkins
[2025-03-30 10:18] LABS: Appearance Urine Turbid; Glucose Urine UA Negative (Negative); PH 5.5 (5.0-9.0); Specific Gravity - Urine 1.020 (1.005-1.025)
[2025-03-30 10:31] LABS: MANUAL DIFF FLAG NO
[2025-03-30 10:53] LABS: Hematocrit 41.0 % (42.0-52.0); Hemoglobin 13.9 g/dl (14.0-18.0); Imm Gran Abs Auto 0.02 X10*3/uL (0.00-0.03); Imm Gran Pct Auto 0.3 % (0.0-0.4); Lymphocytes Absolute Auto 1.6 X10*3/uL (1.2-4.9); Mean Corpuscular HGB Conc 33.9 g/dl (31.0-36.0); Mean Corpuscular Hemoglobin 29.3 pg (27.0-33.0); Mean Corpuscular Volume 86.5 fL (80.0-98.0); NRBC Abs Auto 0.000 X10*3/uL (0.0-0.012); NRBC Pct Auto 0.0 /100WBC (0.0-0.2); Platelet Count 191 X10*3/uL (160-400); Red Blood Count 4.74 X10*6/uL (4.60-5.80); White Blood Count 6.3 X10*3/uL (4.8-10.8)
[2025-03-30 11:20] LABS: Alanine Aminotransferase 13 U/L (0-40); Albumin Level 4.0 g/dL (3.5-5.0); Alkaline Phosphatase 63 U/L (39-117); Anion Gap 7 (12-20); Aspartate Amino Transferase 28 U/L (5-37); Blood Urea Nitrogen 13 mg/dL (9-16); Calcium 8.9 mg/dL (8.4-10.2); Carbon Dioxide 29 mmol/L (22-29); Chloride 104 mmol/L (96-108); Cholesterol 118 mg/dL (<200); Estimated Glomerular Filt Rate > 60; HDL Cholesterol 32 mg/dL (>40); Potassium 4.7 mmol/L (3.3-5.1); Sodium 135 mmol/L (135-145); Total Protein 6.9 g/dL (6.5-8.0); Triglycerides 104 mg/dL (<150)
[2025-03-30 11:40] LABS: Folate 7.8 ng/mL (> or = 4.0); Vitamin B12 268 pg/mL (200-900)
== END 2025-03-30 07:14 | disposition home or self-care (01) ==
LOC: HO.HMGCLDS 07:13
PROVIDERS: PCP Internal Medicine; Visit Provider Internal Medicine
DX: E53.8 Deficiency of other specified B group vitamins (principal); E78.00 Pure hypercholesterolemia, unspecified; E55.9 Vitamin D deficiency, unspecified; D64.9 Anemia, unspecified; R30.0 Dysuria
CPT/HCPCS: 36415; 80053; 80061; 81003; 82306; 82607; 82746; 84443; 85025

== ENCOUNTER 2025-04-08 09:21 | Outpatient (AMB) | payer MEDICARE, BC, SELFPAY ==
--- NOTE | 2025-04-08 09:23 | MHC.PC.OV ---
Vital Signs 04/08/25 09:24 Height 5 ft 9 in Weight 185 lb 4 oz BMI 27.4 BP 122/82 Blood Pressure Location Lt brachial Position Sitting Pulse 48 L Pulse Source Pulse Oximeter Pulse Oximetry (%) 98 Oxygen Delivery Method Room Air Intake Visit Reasons: [facility] f/u Irrigator Overhead Required: No Accompanied by: Self / Same As Patient Allergies Aspirin Allergy (Unknown, Uncoded 04/08/25 10:07) Sensitivity/bleeds Medication List - Last Reconciled 04/08/25 by Obinna Mccauley MD aspirin 81 mg PO DAILY blood pressure test kit-large As directed esomeprazole magnesium 40 mg PO DAILY metoprolol tartrate 50 mg PO BID rosuvastatin 40 mg PO DAILY Tobacco use date assessed: 04/08/25 Fall risk assessment: No Falls in past year Last assessed Fall Risk: 04/08/25 Dental Screening Dental Screen Date: 04/08/25 Did you have a dental visit in the last 12 months?: Yes Did you have a dental problem in the last 6 months where you did not have access to dental care?: No Was dental information given to patient?: Patient has dentist HPI [facility] f/u HPI Details Patient comes in today for his follow-up visit Patient states that he feels okay Relates that he tested positive for COVID back in January 2025, and that his symptoms were mostly mild - felt like he just had a flu and he denies experiencing any increased SOB at the time He has not yet gotten his flu shot and states that he is planning to get that along with his updated COVID booster soon He denies any headaches or dizziness Denies any chest pains No nausea/vomiting, no abdominal pain No change in bowel habits noted He had his follow up labs done last week - to discuss his results [facility] Medical History Coronary artery disease Pure hypercholesterolemia Essential hypertension BMI 28.0-28.9,adult History of sigmoidoscopy Prostate cancer Surgical History History of cystoscopy H/O rectal polypectomy History of coronary artery stent placement S/P CABG x 1 History of prostatectomy Family History Father CAD (coronary artery disease) Myocardial infarction Mother Diverticulitis Social History Housing: House Alcohol intake: current Alcohol intake frequency: a few times a week Patient Tobacco Use Status: Former Tobacco user Tobacco use type: Cigarette e-Cigarette/Vaping Use: Never Used Second Hand Smoke Exposure: Yes service: No Current occupational status: retired Cognitive needs: No Hearing needs: Yes (Hearing aide) Vision needs: No Questionnaire PHQ-9 Over the last 2 weeks, how often have you been bothered by any of the following problems? 1. Little interest or pleasure in doing things: not at all 2. Feeling down, depressed, or hopeless: not at all 3. Trouble falling or staying asleep, or sleeping too much: not at all 4. Feeling tired or having little energy: not at all 5. Poor appetite or overeating: not at all 6. Feeling bad about yourself - or that you are a failure or have let yourself or your family down: not at all 7. Trouble concentrating on things, such as reading the newspaper or watching television: not at all 8. Moving or speaking so slowly that other people could have noticed. Or the opposite - being so fidgety or restless that you have been moving around a lot more than usual: not at all 9. Thoughts that you would be better off or of hurting yourself in some way: not at all Total score: 0 Depression Screening Interpretation: Negative Depression Screening Done: Yes 17642 - PHQ-9 Billing: Yes Source: Developed by Drs. Faheem Lee, Lexus Stevenson, Marcus Haley and colleagues, with an educational mariposa from [employer]. Thrive Questionnaire Date Thrive assessed: 04/08/25 I am a: Patient What is your living situation today?: I have a steady place to live Within the past 12 months, did the food you bought not last and you didn't have the money to get more?: I choose not to answer this question Within the past 12 months, did you worry whether your food would run out before you got money to buy more?: I choose not to answer this question Do you have trouble paying for medicines?: I choose not to answer this question Do you have trouble getting transportation to medical appointments?: I choose not to answer this question Do you have trouble paying your heating and electricity bill?: I choose not to answer this question Do you have trouble taking care of your child, family member or friend?: I choose not to answer this question Do you have trouble with day-to-day activities such as bathing, preparing meals, shopping, managing finances, etc.?: I choose not to answer this question Are you currently unemployed and looking for a job?: I choose not to answer this question Are you interested in more education?: I choose not to answer this question Please select the resources that you would like help with: None Currently or been in a relationship where the following occur: I choose not to answer THRIVE Score: 0 AUDIT C Alcohol Use Questionnaire (AUDIT-C) 1. How often do you have a drink containing alcohol?: Never 3. How often do you have six or more drinks on one occasion?: Never Total Score: 0 Score Reviewed/Action Taken: Yes RIAZ-7 AMB Questionnaire RIAZ-7 Date RIAZ - 7 assessed: 04/08/25 Feeling nervous, anxious, or on edge: 0 = Not at all Not being able to stop or control worryin = Not at all Worrying too much about different things: 0 = Not at all Trouble relaxin = Not at all Being so restless that it is hard to sit still: 0 = Not at all Becoming easily annoyed or irritable: 0 = Not at all Feeling afraid as if something awful might happen: 0 = Not at all Total RIAZ-7 score (0-4 normal; 5-9 mild; 10-14 moderate; 15-21 severe): 0 Source: Developed by Drs. Faheem Lee, Lexus Stevenson, Marcus Haley and colleagues, with an educational mariposa from [employer]. Review of Systems Const Denies chills, Denies fatigue, Denies fever(s) and Denies headache(s) ENT Denies dysphagia, Denies dizziness, Denies otalgia, Denies headache(s), Denies neck pain, Denies odynophagia and Denies sore throat Card Denies chest pain, Denies palpitations and Denies dyspnea Resp Denies chest congestion, Denies cough and Denies dyspnea GI Denies abdominal pain, Denies constipation, Denies dysphagia, Denies heartburn, Denies diarrhea, Denies nausea, Denies odynophagia and Denies vomiting Denies difficulty urinating, Denies dysuria, Denies nocturia and Denies urinary frequency Musc Denies back pain and Denies neck pain Skin/Breast Denies rash Neuro Denies dizziness and Denies headache(s) Endo Denies fatigue and Denies palpitations Physical exam (Primary Care) Vital Signs: Last Vital Signs Pulse 48 L 04/08/25 09:24 BP 122/82 04/08/25 09:24 Pulse Ox 98 04/08/25 09:24 Oxygen Delivery Method Room Air 04/08/25 09:24 BMI result Body Mass Index 27.4 Tobacco/Smoking Status: Tobacco use Status Tobacco use date assessed 04/08/25 04/08/25 09:29 Patient Tobacco Use Status Former Tobacco user 04/08/25 09:29 Tobacco use type Cigarette 04/08/25 09:29 e-Cigarette/Vaping Use Never Used 04/08/25 09:29 PHQ-9: PHQ-9 Score PHQ-9: Total score 0 04/08/25 09:29 Depression Screening Interpretation: Negative Thrive Assessment: Date of Thrive Assessment Date Thrive assessed 04/08/25 04/08/25 09:29 Currently or been in a relationship where the following occur: I choose not to answer Const General: no acute distress and alert HENMT Throat: Yes posterior oropharynx normal and Yes tonsils normal (no TP congestion) Neck Neck: Yes supple and No lymphadenopathy Thyroid: Thyroid normal Resp Auscultation: clear to auscultation bilaterally, no rales and no wheezes Cardio Rate: regular rate Rhythm: regular rhythm Heart sounds: no murmurs GI Palpation (GI): Soft to palpation and nontender Auscultation: normal bowel sounds General: Yes no CVA tenderness Back/Spine/Pelvis Back: no CVA tenderness Thoracic/Lumbar Spine: No lumbar spinal tenderness Skin Rashes: no rashes Extrem General: Yes no clubbing, cyanosis or edema Results Reviewed Results Reviewed: Laboratory Tests 03/30/25 03/30/25 07:18 07:25 WBC 6.3 Hgb 13.9 L Hct 41.0 L Plt Count 191 Sodium 135 Potassium 4.7 Creatinine 0.87 Estimated GFR > 60 Fasting Glucose 105 H Calcium 8.9 AST 28 ALT 13 Triglycerides 104 Cholesterol 118 LDL Cholesterol, Calc 66 HDL Cholesterol 32 L Vitamin B12 268 25-OH Vitamin D Total 22.0 L TSH 2.31 Ur Specific [place] 1.020 Urine Protein Trace Urine Glucose (UA) Negative Urine Blood Negative Urine Nitrite Negative Ur Leukocyte Esterase Negative Coding Level of Care Code Est Pt Level 4 (94297) Diagnoses Pure hypercholesterolemia E78.00 Essential hypertension I10 Coronary artery disease involving [place] coronary artery of [place] heart without angina pectoris I25.10 Coronary Disease-Associated Artery/Lesion type: [place] artery [place] vs. 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 Prostate cancer C61 Overweight (BMI 25.0-29.9) E66.3 Additional Codes PHQ-9 - 49966 - PHQ-9 Billing: Yes ([id number]) Assessment & Plan Assessment & Plan (1) Pure hypercholesterolemia: Code(s): E78.00 - Pure hypercholesterolemia, unspecified Category: Medical Plan: Results of his labs done last week reviewed and discussed with patient Reinforced low cholesterol diet Continue Rosuvastatin 40 mg QD Will have patient recheck his labs and fasting lipids in 4 months (2) Essential hypertension: Code(s): I10 - Essential (primary) hypertension Category: Medical Plan: Reinforced low sodium diet - goal is systolic BP of at least 130 to 140 mm or less Continue Metoprolol 50 mg BID (3) Coronary artery disease: Code(s): I25.10 - Atherosclerotic heart disease of [place] coronary artery without angina pectoris Category: Medical Qualifiers: Coronary Disease-Associated Artery/Lesion type: [place] artery [place] vs. 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 - Irradiation cystitis without hematuria Category: Medical Plan: 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 Patient has experienced hemorrhagic cystitis in the past He was treated with hyperbaric oxygen in 2019 - has claustrophobia Recurrent episode 2020 - required emergency fulguration [facility] bladder at [facility] Follow up with urology as scheduled (6) Prostate cancer: Code(s): C61 - Malignant neoplasm of prostate Category: Medical Plan: S/P Tx with radical prostatectomy at the [facility] S/P subsequent radiation therapy and hormone deprivation Tx Bicalutamide was stopped in 2020 Follow up with urology as scheduled for continuing surveillance (7) Overweight (BMI 25.0-29.9): Code(s): E66.3 - Overweight Category: Medical Plan: Reinforced diet; exercise and weight loss are not realistic due to patient's age and physical issues Plan Follow up in 4 months Orders: Orders Comprehensive [place]. Panel Fast 4 Months E78.00 - Pure hypercholesterolemia, unspecified Lipid Panel 4 Months E78.00 - Pure hypercholesterolemia, unspecified Complete Blood Count Auto Diff 4 Months D64.9 - Anemia, unspecified UA CC w/rflx Micro + Cult 4 Months R30.0 - Dysuria
[2025-04-08 09:24] VITALS: BP 122/82; PULSE 48; O2SAT 98; BMI 27.4
--- OUTSIDE RECORDS SUMMARY | 2025-04-08 10:08 | XMS_ITS | Patient Health Record ---
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 [address] [id number] FELICITAS VASQUEZ Self - patient is the insured [facility] [address] [place], [place] [id number] [phone] [id number] FELICITAS VASQUEZ Self - patient is the insured Medical (General) History Medical History History ICD Code Hypertension Prostate cancer as below GI bleed over 20 years ago due to peptic ulcer disease Hyperlipidemia Denies DM,CVA,Lung disease,renal disease [place] in 1995--has 2 stents--hi s most recent [...] History Surgery Date(Month/Year) Radical Prostatectomy at the [facility] for prostate cancer in 11/2013--- due to a rising PSA level he underwent radiation treatments from February 2015 through mid-April [address] Watkins
== END 2025-04-08 10:12 | disposition home or self-care (01) ==
LOC: HO.HMCH 09:22
PROVIDERS: PCP Internal Medicine; Visit Provider Internal Medicine
DX: E78.00 Pure hypercholesterolemia, unspecified (principal); C61 Malignant neoplasm of prostate; I10 Essential (primary) hypertension; I25.10 Atherosclerotic heart disease of native coronary artery without angina pectoris; E66.3 Overweight; K21.9 Gastro-esophageal reflux disease without esophagitis; N30.40 Irradiation cystitis without hematuria

== ENCOUNTER → 2025-04-08 09:21 | Outpatient (BNVA) | payer MEDICARE, BC, SELFPAY | PROVIDERS: PCP Internal Medicine; Visit Provider Internal Medicine | DX: E78.00 Pure hypercholesterolemia, unspecified (principal); I10 Essential (primary) hypertension; I25.10 Atherosclerotic heart disease of native coronary artery without angina pectoris; K21.9 Gastro-esophageal reflux disease without esophagitis; C61 Malignant neoplasm of prostate; N30.40 Irradiation cystitis without hematuria; E66.3 Overweight; Z68.27 Body mass index [BMI] 27.0-27.9, adult; Z71.3 Dietary counseling and surveillance; Z87.891 Personal history of nicotine dependence | CPT/HCPCS: 96127; 99212 ==

== ENCOUNTER 2025-04-15 07:05 | Outpatient (REF) | payer MEDICARE, BC, SELFPAY ==
--- OUTSIDE RECORDS SUMMARY | 2025-04-15 07:07 | XMS_ITS | Patient Health Record ---
Author Organization [facility] Address [address] [place] [address] Care Team Providers Care Senior Sql Server Database Developer Name Role Phone Pete Brunner MD Primary Care Provider Faheem Bowden Unavailable [phone] Ronny Watkins Unavailable Unavailable Reason For Referral No Information Medications Medication SIG (Take, Route, Frequency, Duration) Notes Start Date End Date Status Metoprolol Tartrate 25 MG Tablet 1 tablet Orally Twice a day Active Crestor 25 mg Tablet 1 tablet Orally Once a day Active NexIUM 40 MG Capsule Delayed Release 1 capsule Orally Once a day Active Aspirin 81 MG Tablet 1 tablet Orally Once a day Active Mesalamine 1000 MG Suppository 1 suppository at bedtime Rectal BID Finished the end of 06/2015 Not-Taking/ PRN hydroCHLOROthiazide 12.5 MG Capsule 1 tablet Orally Once a day Not-Taking/ PRN Hydrocortisone Michi-Pramoxine 1-1 % Cream 1 application as needed Rectal TID; Duration: 30 days 06/22/2015 Not-Taking/ PRN Immunizations Vaccine Route Administration Date Status Comme nts Flu vaccine no Preserv 3 and > Unknown 01/24/2015 Admin istered Social History Social History Additional Details Category Social Info Options Details Miscellaneous: Marital status: Occupation: Retired Section Notes: occasional scotch at dinner, nonsmoker Occasional scotch at dinner but no longer---stopped drinking as of February 2015. 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 Problem Rectal pain (70988654) Rectal pain (K62.89) Active confirmed Plan Of Treatment Pending Test Test Name Order Date CT PELVIS WITH CONTRAST 06/20/2015 Future Test Test Name Order Date FLEXIBLE SIGMOIDOSCOPY, DIAGNOSTIC 06/20 Insurance Providers Payer Name Payer Address Payer Phone Subscriber Number Group Number Insured Name Patient Relationship to Insured Coverage Start Date Coverage End Date MEDICARE OF [place] [address] [place] [address] [id number] DREW FELICITAS Self - patient is the insured [facility] [address] [place], [place] [id number] FELICITAS VASQUEZ Self - patient is the insured Medical (General) History Medical History History ICD Code Hypertension Prostate cancer as below GI bleed over 20 years ago due to peptic ulcer disease Hyperlipidemia Denies DM,CVA,Lung disease,renal disease [place] in 1995--has 2 stents--hi s most recent [...] History Surgery Date(Month/Year) Radical Prostatectomy at the [facility] for prostate cancer in 11/2013--- due to a rising PSA level he underwent radiation treatments from February 2015 through mid-April [address] Watkins
[2025-04-15 10:15] LABS: Appearance Urine Clear; Glucose Urine UA Negative (Negative); PH 7.0 (5.0-9.0); Specific Gravity - Urine <= 1.005 (1.005-1.025); UMIC TRIGGER UA YES
[2025-04-15 11:01] LABS: Prostate Specific Antigen < 0.10 ng/mL (<0.05-4.0)
== END 2025-04-15 07:06 | disposition home or self-care (01) ==
LOC: HO.HMGCLDS 07:05
PROVIDERS: PCP Internal Medicine; Visit Provider Urology
DX: C61 Malignant neoplasm of prostate (principal); N39.3 Stress incontinence (female) (male); Z12.5 Encounter for screening for malignant neoplasm of prostate
CPT/HCPCS: 36415; 81001; 84153; 84403; 87086; 87088; 87186

== ENCOUNTER 2025-05-03 08:26 | Outpatient (AMB) | payer MEDICARE, BC, SELFPAY ==
--- NOTE | 2025-05-03 08:34 | A.OFFVIS_ITS ---
Intake Visit Reasons: 6m/PSA SET( NO UA ) Intake Note: Patient is present for 6 mo follow up Urology Medication:NONE Antibiotic Allergy:NONE Blood Thinner:ASPIRIN Labs done : 04/15/25 :Total Testosterone 74 , PSA <0.10 [employer] Lab Technician Required: No Accompanied by: Self / Same As Patient Allergies Aspirin Allergy (Unknown, Uncoded 05/03/25 08:35) Sensitivity/bleeds HPI Comments Details: Jelani is a very pleasant male. He is a patient of Dr. Hill. 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 - urinary incontinence Six-month follow-up PSA remains well controlled PSA 10/16 <0.1, 04/18 <0.1, 10/17 0.1, 04/19 <0.1 T 74 Penile clamp tolerated Continue six-month surveillance primarily for radiation cystitis Urinary incontinence Secondary to cystoscopy performed [facility] for fulguration of radiation cystitis Leakage nonresponsive to Kegel exercises Tolerates penile clamp Remains on aspirin secondary to cardiac valve, stent, quad bypass 6 month follow-up PSA Prostate cancer - radical prostatectomy [facility] 8, biochemical failure with radiation therapy Diagnosed many years ago Treatment at [facility] with radical prostatectomy Biochemical failure with subsequent radiation therapy and hormones PSA 01/13 <0.1, 10/14 < 0.1 T 80, 04/16 <0.1, 10/15 <0.1, 04/17 <0.1 Had been on continuous bicalutamide which was stopped 2020 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 Has experienced hemorrhagic cystitis Treated with hyperbaric oxygen in 2018 - has claustrophobia Recurrent episode 2020 - required emergency fulguration of bladder at [facility] May benefit from combination vitamin-E and pentoxifylline [facility] Medical History Coronary artery disease Pure hypercholesterolemia Essential hypertension BMI 28.0-28.9,adult History of sigmoidoscopy Prostate cancer Surgical History History of cystoscopy H/O rectal polypectomy History of coronary artery stent placement S/P CABG x 1 History of prostatectomy Family History Father CAD (coronary artery disease) Myocardial infarction Mother Diverticulitis Social History Housing: House Alcohol intake: current Alcohol intake frequency: a few times a week Patient Tobacco Use Status: Former Tobacco user Tobacco use type: Cigarette e-Cigarette/Vaping Use: Never Used Second Hand Smoke Exposure: Yes service: No Current occupational status: retired Cognitive needs: No Hearing needs: Yes (Hearing aide) Vision needs: No Review of Systems Narrative Urinary Symptoms Review - The patient has urinary incontinence with leakage, which has been unresponsive to Kegel exercises. - He uses a penile clamp, which keeps him mostly dry. - His bladder status is reported as stable with no current hematuria. - He experienced a drop or two of blood during a recent urinary tract infection. Const Denies chills and Denies fever(s) Card Reports no additional complaints and Denies syncope Resp Denies cough GI Denies abdominal pain and Denies heartburn Reports as per HPI and Denies change in libido Neuro Denies syncope Psych Denies change in libido Endo Denies change in libido Physical Exam Const General: cooperative, healthy appearing, comfortable and no acute distress Orientation/consciousness: patient oriented x3 HEENT Face and sinus: Yes normal facial exam Mouth: moist mucous membranes Neck Neck: Yes normal visual inspection, Yes full ROM and Yes trachea midline Chest Chest palpation & inspection: normal inspection of the chest Resp Effort & Inspection: normal respiratory effort, able to speak in complete sentences and no respiratory distress GI Inspection: Yes normal to inspection Back/Spine/Pelvis Cervical Spine: normal cervical lordosis Thoracic/Lumbar Spine: thoracic and lumbar spine normal to inspection Skin General skin exam: no rashes or lesions noted Neuro General: patient oriented x3, gait normal, tone normal and moves all extremities Extrem General: Yes normal to inspection and Yes capillary refill normal Assessment & Plan Assessment & Plan (1) Prostate cancer: Code(s): C61 - Malignant neoplasm of prostate Category: Medical (2) 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 - The patient's total testosterone is 74. - For urinary incontinence, the patient will continue to use a penile clamp as needed, as this is effective for him. - The patient was instructed to call if he experiences any blood in the urine or a flare of symptoms. - A follow-up visit is scheduled for one year. Discussion Notes I discussed with the patient that his PSA is undetectable and his total testosterone is 74, indicating his prostate cancer is well-controlled. We r eviewed that his bladder is stable, and he is managing his incontinence well with a penile clamp. Given his stability two years post-radiation, we agreed to extend his follow-up interval to one year. I provided anticipatory guidance, instructing him to call me if he develops any hematuria or has a symptom flare. Patient Instructions - Your lab results show that your prostate cancer is well-controlled. - Continue to use your penile clamp as needed to manage urine leakage. - Please call our office immediately if you see any blood in your urine or if your symptoms get worse. - You can schedule your next follow-up appointment in one year. Orders: Orders Prostate Specific Antigen 12 Months C61 - Malignant neoplasm of prostate Patient Instructions: This note is constructed using voice recognition software. While every effort has been made to ensure accuracy straightening machine feeder errors may have been included. Imaging studies, laboratory and physical exam results were discussed and reviewed in detail. No major barriers to patient understanding were identified. An opportunity to ask questions regarding the treatment plan was provided. All questions were answered. The patient expressed understanding and agreement with the above treatment plan. The patient is aware they should contact our office by phone for worsening of their current condition or the appearance of new urologic symptoms. Compliance is encouraged with any medications and followup testing that is ordered. It is a privilege to participate in the urologic care of your patient. If you have any questions or concerns regarding treatment for the above conditions, or other urologic issues, please do not hesitate to contact me. The office telephone contact is [phone]. 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
== END 2025-05-03 08:52 | disposition home or self-care (01) ==
LOC: HO.HUSH 08:27
PROVIDERS: PCP Internal Medicine; Visit Provider Urology
DX: C61 Malignant neoplasm of prostate (principal); N30.40 Irradiation cystitis without hematuria
CPT/HCPCS: 99213; G2211

== ENCOUNTER → 2025-05-03 08:26 | Outpatient (BNVA) | payer MEDICARE, BC, SELFPAY | PROVIDERS: PCP Internal Medicine; Visit Provider Urology | DX: C61 Malignant neoplasm of prostate (principal); N30.40 Irradiation cystitis without hematuria; R32 Unspecified urinary incontinence | CPT/HCPCS: 99212 ==